=== PATIENT | male | born 1955 | race Caucasian/White ===

== ENCOUNTER 2021-12-28 07:59 | Outpatient (CLI) | payer BC, SELFPAY ==
--- NOTE | 2021-12-28 08:09 | CT_ITS ---
WS: [id number] CT TEMPORAL BONES TECHNIQUE: Noncontrast CT of the temporal bones with coronal and sagittal reformatted images. CLINICAL INFORMATION: MIXED CONDUCTIVE SENSORINEURAL HEARING LOSS, BILATERAL COMPARISON: CT March 032005 DLP: 308.[address] scans at [facility] use at least one of these dose optimization techniques: automated e xposure control; mA and/or kV adjustment per patient size (includes targeted exams where dose is matc hed to clinical indication); or iterative reconstruction. FINDINGS: Mastoid air cells well aerated bilaterally. External auditory canals are patent. Paranasal sinuses are well aerated. Mild mucosal thickening ethmoid air cells. Normal posterior nasopharynx. No rmal parapharyngeal fat RIGHT: Mastoid air cells are well aerated. Normal external auditory canal. Ossicles are normal in appearance . Middle ear is well aerated. Normal tegmen tympani. Semicircular canals and cochlea are normal in ap pearance. Prussak's space is normal. Normal inner ear structures. Normal vestibular aqueduct. Facial nerve recess is normal. LEFT: Mastoid air cells are well aerated. Normal external auditory canal. Ossicles are normal in appearance . Middle ear is well aerated. Normal tegmen tympani. Semicircular canals and cochlea are normal in ap pearance. Prussak's space is normal. Normal inner ear structures. Normal vestibular aqueduct. Facial nerve recess is normal. Visualized intracranial contents and posterior fossa are normal. CT/CT temporal bone wo con* [id number] IMPRESSION: Normal temporal bone CT.
== END 2021-12-28 08:00 | disposition home or self-care (01) ==
PROVIDERS: Family Provider Family Medicine; Visit Provider Specialist
DX: H90.6 Mixed conductive and sensorineural hearing loss, bilateral (principal)
CPT/HCPCS: 70480

== ENCOUNTER 2022-11-28 13:33 | Observation (INO) | payer MEDICARE, SELFPAY ==
[2022-11-28] VITALS (10 sets, daily range): BP systolic 190–210; BP diastolic 78–111; PULSE 61–100; RESP 18–20; TEMP 36.5–37.7; O2SAT 93–99
--- NOTE | 2022-11-28 14:03 | US_ITS ---
WS: [id number] ULTRASOUND ABDOMEN LIMITED CLINICAL INFORMATION: RUQ abd pain COMPARISON: None. FINDINGS: Liver Size: Enlarged Craniocaudal length: 17.4 cm. Echogenicity: Coarse Surface nodularity: None. Mass (size and location): None. Bile ducts Intrahepatic ducts: Normal. Common bile duct diameter: 1.0 cm. Gallbladder Cholelithiasis with mild gallbladder wall thickening and trace pericholecystic fluid. Gallstones: Present Gallbladder sludge: None. Gallbladder wall thickening: Present Pericholecystic fluid: Present Sonographic Das sign: Present Pancreas Normal as visualized. Right kidney: Normal. Hydronephrosis: None. Size: 10.0 cm x 5.6 cm x 4.7 cm. Abdominal aorta and IVC Visualized portions are normal. Ascites: None. US/US gall bladder [id number] IMPRESSION: Technically difficult study due to patient's pain. 1. Hepatomegaly with coarse hepatic echogenicity likely due to fatty infiltrat ion. 2. Shadowing cholelithiasis mild diffuse gallbladder wall thickening with surinder a and trace fluid. Findings suspicious for cholecystitis. 3. Dilated common bile duct measures 10.5 mm. Recommend MRCP for evaluation of choledocholithiasis. 4. No hydronephrosis in RIGHT kidney. Notified Matias Murillo DO at 11/28/2022 2:59 PM.
[2022-11-28] MEDS: sodium chloride 0.9% 1,000 ML 999 ML IV (14:12)
--- NOTE | 2022-11-28 14:19 | W.ED.ABDPA2 ---
Documented by User: Matias Murillo DO 11/29/22 06:08 HPI - Abdominal Pain General: Chief Complaint: Abdominal Pain Stated Complaint: abd pain Time Seen by Provider: 11/28/22 13:42 Source: patient Mode of arrival: ambulatory History of Present Illness: 67-year-old male presents emergency room complaining of abdominal pain. The nurses notes that he hit his left abdomen with a sledgehammer 4 days ago the handle snapped back and caught him however when I seen him he referred to his right upper quadrant to the lower ribs on the right. There is no bruising there. He states that was 4 days ago this morning around 9:00 he began having abdominal discomfort with nausea and vomiting and pain is radiating to his back he denies any dysuria urgency or frequency or hematuria no chest pain no shortness of breath no fever sweats or chills no hematemesis or coffee-ground emesis. He has not previously had episodes like this. No previous abdominal surgeries. MD elicited complaint: abdominal pain Onset (ago): hour(s) Pain Consistency: constant Location: RUQ Severity: moderate Quality: sharp Radiation: R flank and back Exacerbating factors: nothing Relieving factors: nothing Associated Symptoms: Reports bloating, GI cramping, nausea and poor appetite; Denies anorexia, belching, change in bowel habits, change in stool character, chills, coffee ground emesis, constipation, diarrhea, dyspepsia, dysuria, excessive flatus, fever(s), heartburn, hematochezia, hematuria, hematemesis, fecal incontinence, loose stools, melena, syncope and vomiting Review of Systems Const: Denies: fever(s) or chills ENMT: Denies: throat pain, ear or mastoid pain, nasal discharge or nasal congestion Card: Denies: chest pain, palpitations, irregular heart rhythm or syncope Resp: Denies: dyspnea, productive cough or non-productive cough GI: Reports: abdominal pain, nausea, bloating and GI cramping; Denies: vomiting, hematemesis, coffee ground emesis, heartburn, diarrhea, constipation, belching, excessive flatus, fecal incontinence, change in bowel habits, change in stool character, hematochezia or melena : Denies: dysuria, urinary frequency, urinary urgency or hematuria Musc: Reports: back pain; Denies: neck pain Skin/Breast: Denies: rash or pruritus Physical Exam Const: GENERAL APPEARANCE: cooperative and comfortable ORIENTATION/CONSCIOUSNESS: Yes awake, Yes oriented to person, Yes oriented to place and Yes oriented to time HENMT: COMMON NORMALS: normocephalic, atraumatic and hearing grossly normal bilaterally HEAD & SCALP: normocephalic and atraumatic Resp: COMMON NORMALS: normal respiratory effort, No retractions, No use of accessory muscles and clear to auscultation bilaterally AUSCULTATION: clear to auscultation bilaterally Cardio: COMMON NORMALS: regular rate, regular rhythm and No murmurs present (Cardio) RATE: regular rate RHYTHM: regular rhythm GI: COMMON NORMALS: No hepatosplenomegaly present AUSCULTATION: Yes normoactive bowel sounds PALPATION: Yes Tenderness to palpation present (GI) Details: RUQ, No Guarding due to palpation present (GI) and Yes No hepatosplenomegaly present Extremity: COMMON NORMALS: normal to inspection, capillary refill normal, no clubbing, cyanosis or edema, no calf tenderness and no pedal edema Neuro: SENSORIUM/ORIENTATION: Yes oriented to person, Yes oriented to place and Yes oriented to time Skin: COMMON NORMALS: no rashes or lesions noted GENERAL SKIN EXAM: no rashes or lesions noted Course Vital Signs: Vital signs: Vital Signs Temperature 99.8 F H 11/28/22 21:17 Pulse Rate 78 11/29/22 03:00 Respiratory Rate 20 H 11/29/22 03:00 Blood Pressure 164/78 11/29/22 03:00 Pulse Oximetry 96 11/29/22 03:00 Oxygen Delivery Me thod Room Air 11/29/22 03:00 MDM - Abdominal Pain Medical Decision Making Care signed out to Dr. Bacon at change of shift. See final notes for diagnosis and disposition. Patient presents with cholecystitis he has no signs of common bile duct dilatation on his MRCP I did speak to surgeon on-call Dr. Watt will start on IV antibiotics and admit at this time. Medical Records I reviewed the patient's medical records. Lab Data I reviewed the patient's lab results. 11/28/22 14:18 11/28/22 14:18 Labs/Radiology: Radiology Impressions Gallbladder Ultrasound 11/28/22 14:03 IMPRESSION: Technically difficult study due to patient's pain. 1. Hepatomegaly with coarse hepatic echogenicity likely due to fatty infiltration. 2. Shadowing cholelithiasis mild diffuse gallbladder wall thickening with edema and trace fluid. Findings suspicious for cholecystitis. 3. Dilated common bile duct measures 10.5 mm. Recommend MRCP for evaluation of choledocholithiasis. 4. No hydronephrosis in RIGHT kidney. Notified Matias Murillo DO at 11/28/2022 2:59 PM. Cholangiopancreatography MRI 11/28/22 15:19 IMPRESSION: 1. Cholelithiasis with findings consistent with cholecystitis. 2. No common bile duct dilation or choledocholithiasis. 3. Hepatic steatosis. COMMENTS: Consistent with the [employer]'s Incidental Findings Committee white paper (J Am Smita Radiol 2018): Any incidental renal lesion less than 1 cm or classified as too small to characterize, or any incidental cystic renal lesion characterized as simple-appearing, is likely benign. No follow-up imaging is recommended for these lesions per consensus recommendations based on imaging criteria. Laboratory Results WBC 12.6 10^3/uL (4.0-10.0) H 11/28/22 14:18 RBC 6.03 10^6/uL (4.1-5.3) H 11/28/22 14:18 Hgb 17.3 g/dL (11.7-16.6) H 11/28/22 14:18 Hct 50.1 % (42.0-52.0) 11/28/22 14:18 MCV 83.1 fl (80-94) 11/28/22 14:18 MCH 28.7 pg (28.0-34.0) 11/28/22 14:18 MCHC 34.5 g/dL (30.0-36.0) 11/28/22 14:18 RDW 12.7 % (12.1-15.1) 11/28/22 14:18 Plt Count 287 10^3/cmm (130-400) 11/28/22 14:18 MPV 9.6 fL (7.4-10.4) 11/28/22 14:18 Neut % (Auto) 82.6 % 11/28/22 14:18 Lymph % (Auto) 12.0 % 11/28/22 14:18 Gilchrist % (Auto) 3.5 % 11/28/22 14:18 Eos % (Auto) 1.0 % 11/28/22 14:18 Baso % (Auto) 0.4 % 11/28/22 14:18 Neut # (Auto) 10.37 10^3/uL (1.8-7.7) H 11/28/22 14:18 Lymph # (Auto) 1.5 10^3/uL (0.8-4.8) 11/28/22 14:18 Gilchrist # (Auto) 0.4 10^3/uL (0.2-0.9) 11/28/22 14:18 Eos # (Auto) 0.1 10^3/uL (0.0-0.8) 11/28/22 14:18 Baso # (Auto) 0.1 10^3/uL (0.0-0.1) 11/28/22 14:18 Nucleated RBC % (auto) 0 % 11/28/22 14:18 Nucleated RBCs # 0.0 /100WBC 11/28/22 14:18 Sodium 139 mmol/L (136-145) 11/28/22 14:18 Potassium 3.9 mmol/L (3.5-5.1) 11/28/22 14:18 Chloride 102 mmol/L (98-107) 11/28/22 14:18 Carbon Dioxide 24 mmol/L (22-29) 11/28/22 14:18 Anion Gap 16.9 (5-19) 11/28/22 14:18 BUN 21 mg/dL (8-23) 11/28/22 14:18 Creatinine 1.0 mg/dL (0.7-1.2) 11/28/22 14:18 GFR Calculation 74.1 mL/min (90-130) L 11/28/22 14:18 Glucose 115 mg/dL (65-115) 11/28/22 14:18 Calculated Osmolality 292 mOsm/kg (285-295) 11/28/22 14:18 Calcium 9.6 mg/dL (8.5-10.5) 11/28/22 14:18 Total Bilirubin 1.0 mg/dL (0.15-1.2) 11/28/22 14:18 AST 20 U/L (0-40) 11/28/22 14:18 ALT 22 U/L (0-41) 11/28/22 14:18 Alkaline Phosphatase 104 U/L (40-130) 11/28/22 14:18 Total Protein 7.5 g/dL (6.6-8.7) 11/28/22 14:18 Albumin 4.3 g/dL (3.5-5.2) 11/28/22 14:18 Globulin 3.2 g/dL (1.3-4.6) 11/28/22 14:18 Lipase 43 U/L (13-60) 11/28/22 14:08 Urine Color Yellow (Yellow) 11/28/22 16:40 Urine Appearance Clear (CLEAR) 11/28/22 16:40 Urine pH 6 (5-7) 11/28/22 16:40 Ur Specific [place] 1.020 (1.005-1.030) 11/28/22 16:40 Urine Protein Neg (Negative) 11/28/22 16:40 Urine Glucose (UA) Norm (Normal) 11/28/22 16:40 Urine Ketones 1+ (Negative) H 11/28/22 16:40 Urine Blood Neg (Negative) 11/28/22 16:40 Urine Nitrate Negative (Negative) 11/28/22 16:40 Urine Bilirubin Neg (Negative) 11/28/22 16:40 Urine Urobilinogen Neg mg/dL (Negative) 11/28/22 16:40 Ur Leukocyte Esterase Negative (Negative) 11/28/22 16:40 Discharge Plan Discharge Patient Disposition: Admitted As Inpatient Admit Provider: Lyndon Watt Clinical Impression: Acute cholecystitis Condition: Stable Coding Level of Care Code ED [place] for Chg Fwd Documented by User: Steven Bacon MD 11/28/22 19:03 HPI - Abdominal Pain General: Chief Complaint: Abdominal Pain Stated Complaint: abd pain Time Seen by Provider: 11/28/22 13:42 Course Vital Signs: Vital signs: Vital Signs Temperature 99.8 F H 11/28/22 21:17 Pulse Rate 78 11/29/22 03:00 Respiratory Rate 20 H 11/29/22 03:00 Blood Pressure 164/78 11/29/22 03:00 Pulse Oximetry 96 11/29/22 03:00 Oxygen Delivery Me thod Room Air 11/29/22 03:00 MDM - Abdominal Pain Medical Decision Making Patient presents with cholecystitis he has no signs of common bile duct dilatation on his MRCP I did speak to surgeon on-call Dr. Watt will start on IV antibiotics and admit at this time. Lab Data 11/28/22 14:18 11/28/22 14:18 Labs/Radiology: Radiology Impressions Gallbladder Ultrasound 11/28/22 14:03 IMPRESSION: Technically difficult study due to patient's pain. 1. Hepatomegaly with coarse hepatic echogenicity likely due to fatty infiltration. 2. Shadowing cholelithiasis mild diffuse gallbladder wall thickening with edema and trace fluid. Findings suspicious for cholecystitis. 3. Dilated common bile duct measures 10.5 mm. Recommend MRCP for evaluation of choledocholithiasis. 4. No hydronephrosis in RIGHT kidney. Notified Matias Murillo DO at 11/28/2022 2:59 PM. Cholangiopancreatography MRI 11/28/22 15:19 IMPRESSION: 1. Cholelithiasis with findings consistent with cholecystitis. 2. No common bile duct dilation or choledocholithiasis. 3. Hepatic steatosis. COMMENTS: Consistent with the [employer]'s Incidental Findings Committee white paper (J Am Smita Radiol 2018): Any incidental renal lesion less than 1 cm or classified as too small to characterize, or any incidental cystic renal lesion characterized as simple-appearing, is likely benign. No follow-up imaging is recommended for these lesions per consensus recommendations based on imaging criteria. Laboratory Results WBC 12.6 10^3/uL (4.0-10.0) H 11/28/22 14:18 RBC 6.03 10^6/uL (4.1-5.3) H 11/28/22 14:18 Hgb 17.3 g/dL (11.7-16.6) H 11/28/22 14:18 Hct 50.1 % (42.0-52.0) 11/28/22 14:18 MCV 83.1 fl (80-94) 11/28/22 14:18 MCH 28.7 pg (28.0-34.0) 11/28/22 14:18 MCHC 34.5 g/dL (30.0-36.0) 11/28/22 14:18 RDW 12.7 % (12.1-15.1) 11/28/22 14:18 Plt Count 287 10^3/cmm (130-400) 11/28/22 14:18 MPV 9.6 fL (7.4-10.4) 11/28/22 14:18 Neut % (Auto) 82.6 % 11/28/22 14:18 Lymph % (Auto) 12.0 % 11/28/22 14:18 Gilchrist % (Auto) 3.5 % 11/28/22 14:18 Eos % (Auto) 1.0 % 11/28/22 14:18 Baso % (Auto) 0.4 % 11/28/22 14:18 Neut # (Auto) 10.37 10^3/uL (1.8-7.7) H 11/28/22 14:18 Lymph # (Auto) 1.5 10^3/uL (0.8-4.8) 11/28/22 14:18 Gilchrist # (Auto) 0.4 10^3/uL (0.2-0.9) 11/28/22 14:18 Eos # (Auto) 0.1 10^3/uL (0.0-0.8) 11/28/22 14:18 Baso # (Auto) 0.1 10^3/uL (0.0-0.1) 11/28/22 14:18 Nucleated RBC % (auto) 0 % 11/28/22 14:18 Nucleated RBCs # 0.0 /100WBC 11/28/22 14:18 Sodium 139 mmol/L (136-145) 11/28/22 14:18 Potassium 3.9 mmol/L (3.5-5.1) 11/28/22 14:18 Chloride 102 mmol/L (98-107) 11/28/22 14:18 Carbon Dioxide 24 mmol/L (22-29) 11/28/22 14:18 Anion Gap 16.9 (5-19) 11/28/22 14:18 BUN 21 mg/dL (8-23) 11/28/22 14:18 Creatinine 1.0 mg/dL (0.7-1.2) 11/28/22 14:18 GFR Calculation 74.1 mL/min (90-130) L 11/28/22 14:18 Glucose 115 mg/dL (65-115) 11/28/22 14:18 Calculated Osmolality 292 mOsm/kg (285-295) 11/28/22 14:18 Calcium 9.6 mg/dL (8.5-10.5) 11/28/22 14:18 Total Bilirubin 1.0 mg/dL (0.15-1.2) 11/28/22 14:18 AST 20 U/L (0-40) 11/28/22 14:18 ALT 22 U/L (0-41) 11/28/22 14:18 Alkaline Phosphatase 104 U/L (40-130) 11/28/22 14:18 Total Protein 7.5 g/dL (6.6-8.7) 11/28/22 14:18 Albumin 4.3 g/dL (3.5-5.2) 11/28/22 14:18 Globulin 3.2 g/dL (1.3-4.6) 11/28/22 14:18 Lipase 43 U/L (13-60) 11/28/22 14:08 Urine Color Yellow (Yellow) 11/28/22 16:40 Urine Appearance Clear (CLEAR) 11/28/22 16:40 Urine pH 6 (5-7) 11/28/22 16:40 Ur Specific [place] 1.020 (1.005-1.030) 11/28/22 16:40 Urine Protein Neg (Negative) 11/28/22 16:40 Urine Glucose (UA) Norm (Normal) 11/28/22 16:40 Urine Ketones 1+ (Negative) H 11/28/22 16:40 Urine Blood Neg (Negative) 11/28/22 16:40 Urine Nitrate Negative (Negative) 11/28/22 16:40 Urine Bilirubin Neg (Negative) 11/28/22 16:40 Urine Urobilinogen Neg mg/dL (Negative) 11/28/22 16:40 Ur Leukocyte Esterase Negative (Negative) 11/28/22 16:40 Discharge Plan Discharge Patient Disposition: Admitted As Inpatient Admit Provider: Lyndon Watt Clinical Impression: Acute cholecystitis Condition: Stable Coding Level of Care Code ED [place] for Masoud Hernandez
[2022-11-28] MEDS: morphine 4 mg/mL SDV 1 mL IVP ×3 (14:36→20:51)
[2022-11-28 14:56] LABS: Basophils # 0.1 10^3/uL (0.0-0.1); Basophils % 0.4 %; Eosinophils # 0.1 10^3/uL (0.0-0.8); Hematocrit 50.1 % (42.0-52.0); Hemoglobin 17.3 g/dL (11.7-16.6); Lymphocytes # 1.5 10^3/uL (0.8-4.8); Mean Corpuscular HGB Conc 34.5 g/dL (30.0-36.0); Mean Corpuscular Hemoglobin 28.7 pg (28.0-34.0); Mean Corpuscular Volume 83.1 fl (80-94); Mean Platelet Volume 9.6 fL (7.4-10.4); Monocytes # 0.4 10^3/uL (0.2-0.9); Monocytes % 3.5 %; Neutrophils # 10.37 10^3/uL (1.8-7.7); Neutrophils % 82.6 %; Nucleated Red Blood Cells % 0 %; Platelet Count 287 10^3/cmm (130-400); Red Blood Count 6.03 10^6/uL (4.1-5.3); Red Cell Distribution Width 12.7 % (12.1-15.1); White Blood Count 12.6 10^3/uL (4.0-10.0)
[2022-11-28 15:12] LABS: Alanine Aminotransferase 22 U/L (0-41); Albumin Level 4.3 g/dL (3.5-5.2); Alkaline Phosphatase 104 U/L (40-130); Anion Gap 16.9 (5-19); Aspartate Amino Transferase 20 U/L (0-40); Blood Urea Nitrogen 21 mg/dL (8-23); Calcium 9.6 mg/dL (8.5-10.5); Carbon Dioxide 24 mmol/L (22-29); Chloride 102 mmol/L (98-107); Globulin 3.2 g/dL (1.3-4.6); Glomerular Filtration Rate 74.1 mL/min (90-130); Glucose 115 mg/dL (65-115); Osmolality Calculated 292 mOsm/kg (285-295); Potassium 3.9 mmol/L (3.5-5.1); Sodium 139 mmol/L (136-145); Total Protein 7.5 g/dL (6.6-8.7)
--- NOTE | 2022-11-28 15:19 | MRR_ITS ---
PROCEDURE INFORMATION: Exam: MR Abdomen Without Contrast Exam date and time: 11/28/2022 5:43 PM Age: 67 years old Clinical indication: Abdominal pain; Additional info: Right upper quadrant abdominal pain dilated common bile duct TECHNIQUE: Imaging protocol: Magnetic resonance imaging of the abdomen without contrast. COMPARISON: US gall bladder [id number] 11/28/2022 2:19 PM FINDINGS: Liver: Hepatic steatosis. No mass. Gallbladder and bile ducts: Cholelithiasis with gallbladder wall edema and thickening. Common bile duct measures 5 mm in diameter. No filling defect within the common bile duct. Pancreas: Unremarkable. No ductal dilation. Spleen: Unremarkable. No splenomegaly. Adrenal glands: Unremarkable. No mass. Kidneys and ureters: Subcentimeter cyst noted in the right kidney. No solid mass. No hydronephrosis. Stomach and bowel: Visualized stomach and intestines are unremarkable. Intraperitoneal space: No free fluid. Vasculature: No abdominal aortic aneurysm. Bones/joints: Unremarkable. Soft tissues: Unremarkable. MR/MR MRCP [id number] IMPRESSION: 1. Cholelithiasis with findings consistent with cholecystitis. 2. No common bile duct dilation or choledocholithiasis. 3. Hepatic steatosis. COMMENTS: Consistent with the [employer]'s Incidental Findings Committee white paper (J Am Smita Radiol 2018): Any incidental renal lesion less than 1 cm or classified as too small to characterize, or any incidental cystic renal lesion characterized as simple-appearing, is likely benign. No follow-up imaging is recommended for these lesions per consensus recommendations based on imaging criteria.
[2022-11-28 17:15] LABS: Add Urine Microscopic? NO; Charge for UA Resulting for Rev
[2022-11-28 17:51] LABS: Bilirubin Urine Neg (Negative); Blood Urine Neg (Negative); Glucose Urine UA Norm (Normal); Ketones Urine 1+ (Negative); Leukocyte Esterase Urine Negative (Negative); Nitrate Urine Negative (Negative); Protein Urine Neg (Negative); Urine Appearance Clear (CLEAR); Urine Color Yellow (Yellow); Urobilinogen Urine Neg (Negative); pH Urine 6 (5-7)
[2022-11-28 18:41] LABS: Lipase 43 U/L (13-60)
[2022-11-28] MEDS: piperacillin-tazobactam 3.375 GM in sodium chloride 0.9% (plus) 50 ML IV ×2 (19:35→22:12)
[2022-11-28] MEDS: sodium chloride 0.9% 1,000 ML 100 ML IV (20:51)
[2022-11-28] MEDS: ondansetron 2 mg/ML SDV 2 mL 4 MG IVP (20:51)
[2022-11-29] VITALS (19 sets, daily range): BP systolic 120–164; BP diastolic 58–79; PULSE 62–100; RESP 15–22; TEMP 36.9–38.1; O2SAT 91–96
[2022-11-29] MEDS: morphine 4 mg/mL SDV 1 mL IVP ×3 (01:09→12:55)
[2022-11-29] MEDS: sodium chloride 0.9% 1,000 ML 100 ML IV ×3 (02:34→23:56)
[2022-11-29] MEDS: piperacillin-tazobactam 3.375 GM in sodium chloride 0.9% (plus) 50 ML IV ×3 (06:26→20:02)
[2022-11-29] MEDS: ondansetron 4 MG Tablet PO (09:28)
--- NOTE | 2022-11-29 12:47 | P.ANESASSM_ITS ---
Pre-Anesthetic Assessment Height/Weight: Weight 86.183 kg Temp Pulse Resp BP Pulse Ox O2 Del Method 99.1 F 71 15 160/74 94 Room Air 11/29/22 11:00 11/29/22 11:00 11/29/22 11:00 11/29/22 11:00 11/29/22 11:00 11/29/22 11:00 Operation Date: 11/29/22 13:35 Proposed Procedures p Laparoscopic Cholecystectomy(Not Applicable) - Lyndon Watt DO Familial anesthetic complications: None Was Beta Niki taken within 24 hours: N/A Was Clonidine taken within 24 hours: N/A Last intake: > 8hrs Social No alcohol and No tobacco Exam alert, oriented x 3, clear to auscultation bilaterally and regular rate & rhythm Airway Mallampati: Class III Dentition: false Neuropsych cochlear implant Anesthetic Plan ASA status: 2 Anesthesia: General Risk of > 500 ml blood loss (7ml/kg in children): No Medications/Allergies Home Medications Medication Instructions Recorded Confirmed Last Taken Type No Known Home Medications 11/29/22 11/29/22 Unknown History Allergies Allergy/AdvReac Type Severity Reaction Status Date / Time No Known Allergies Allergy Verified 11/28/22 13:36 Current Medications Generic Name Dose Route Start Last Admin Trade Name Freq PRN Reason Stop Dose Admin Piperacillin Sod/Tazobactam 50 mls @ 12.5 mls/hr 11/28/22 19:30 11/29/22 10:53 Sod 3.375 gm/ Sodium Chloride IV Infused Q8H FORTUNATO Infusion Protocol Sodium Chloride 1,000 mls @ 100 mls/hr 11/28/22 19:38 11/29/22 12:21 Sodium Chloride 0.9% IV 100 mls/hr .Q10H FORTUNATO Administration Morphine Sulfate 4 mg 11/28/22 19:38 11/29/22 07:36 Morphine 4 Mg/Ml Sdv 1 Ml IVP 4 mg Q4H PRN Administration SEVERE PAIN Ondansetron HCl 4 mg 11/28/22 19:38 11/29/22 09:28 Ondansetron 4 Mg Tablet PO 4 mg Q8H PRN Administration NAUSEA AND VOMITING Data Anesthesia 11/28/22 14:18 11/28/22 14:18 Short CBC 11/28/22 Range/Units 14:18 WBC 12.6 H (4.0-10.0) 10^3/uL Hgb 17.3 H (11.7-16.6) g/dL Hct 50.1 (42.0-52.0) % MCV 83.1 (80-94) fl Plt Count 287 (130-400) 10^3/cmm Neut % (Auto) 82.6 % Neut # (Auto) 10.37 H (1.8-7.7) 10^3/uL BMP 11/28/22 14:18 Sodium 139 Potassium 3.9 Chloride 102 Carbon Dioxide 24 BUN 21 Creatinine 1.0 Glucose 115 Calcium 9.6 Liver Function 11/28/22 Range/Units 14:18 Total Bilirubin 1.0 (0.15-1.2) mg/dL AST 20 (0-40) U/L ALT 22 (0-41) U/L Alkaline Phosphatase 104 (40-130) U/L Albumin 4.3 (3.5-5.2) g/dL Urine 11/28/22 Range/Units 16:40 Urine Color Yellow (Yellow) Urine Appearance Clear (CLEAR) Urine pH 6 (5-7) Ur Specific [place] 1.020 (1.005-1.030) Urine Protein Neg (Negative) Urine Glucose (UA) Norm (Normal) Urine Ketones 1+ H (Negative) Urine Nitrate Negative (Negative) Urine Bilirubin Neg (Negative) Ur Leukocyte Esterase Negative (Negative) Microbiology 11/28/22 19:18 Blood Culture - Preliminary Blood SPECIMEN COLLECTED 11/28/22 19:18 Blood Culture - Preliminary Blood SPECIMEN COLLECTED Cardiac Studies: No Data to Display
[2022-11-29] MEDS: sodium chloride 0.9% 1,000 ML 30 ML IV (14:41)
--- NOTE | 2022-11-29 14:54 | P.HP_ITS ---
Providers/Chief Complaint Admitting Physician: Lyndon Watt DO Primary Care Provider: Lyndon Leon Chief Complaint: abd pain History of Present Illness Edil Gr is a 67 year old male who presented to the hospital with a 1 day history of right-sided abdominal pain radiating to his right flank. Eating makes pain worse. Nothing makes pain better. He does report nausea and emesis but denies any hematemesis. Denies any diarrhea, constipation, hematochezia and/or melena. Imaging shows acute calculus cholecystitis. Review of Systems General: Reports: 10 or more systems reviewed and unremarkable except in HPI and below Medications/Allergies Home Medications Medication Instructions Recorded Confirmed Last Taken Type No Known Home Medications 11/29/22 11/29/22 Unknown History Allergies Allergy/AdvReac Type Severity Reaction Status Date / Time No Known Allergies Allergy Verified 11/28/22 13:36 Vitals/I&O/Wt Last Vital Signs Temp 99.1 F 11/29/22 11:00 Pulse 71 11/29/22 11:00 Resp 18 11/29/22 12:55 BP 160/74 11/29/22 11:00 Pulse Ox 94 11/29/22 11:00 O2 Del Method Room Air 11/29/22 11:00 11/28/22 11/29/22 11/29/22 22:59 06:59 14:59 Intake Total 1050 / 1050 621.667 / 7130.525 6822.333 / 1028.333 Output Total 400 / 400 Balance 1050 / 1050 221.667 / 9221.029 9913.333 / 1028.333 Weight last 48 hrs Weight 190 lb Physical Exam Narrative: General : Patient is well developed , no acute distress, oriented x3 Head : Normal cephalic, a-traumatic. Ears : Pinnae and external canal are normal. He is hard of hearing. Eyes : PERRLA, Sclera and injection are normal. No conjunctival discharge. Nose : Mucous membranes are without erythema. Throat : buccal mucosa is normal, gums are without significant recession or hypertrophy. Lungs : Equal chest rise bilaterally, no use of accessory muscles, trachea is midline. Cor : Rate and rhythm are normal. Abdomen : Soft, ND, tender to palpation in the right upper quadrant, positive Das's no g/r/m Extremities : No edema, no cyanosis or clubbing, dorsalis pedis pulses are present bilaterally, non-tender to palpation of calves. Upper extremities are normal bilaterally. Back : non-tender to palpation, no CVA tenderness. Neuro : CN II - XII intact, Upper and lower extremities have equal and full str ength Data 11/28/22 14:18 11/28/22 14:18 Micro: Microbiology 11/28/22 19:18 Blood Culture - Preliminary Blood SPECIMEN COLLECTED 11/28/22 19:18 Blood Culture - Preliminary Blood SPECIMEN COLLECTED A&P Assessment and plan (1) Acute calculous cholecystitis: Plan Laparoscopic cholecystectomy The risks and benefits of the procedure, including but not limited to, bleeding, infection, scar, numbness, pain, damage to surrounding structures, damage to common bile duct requiring additional surgery, conversion to an open procedure, were explained to the patient. He is understanding of the risks and wishes to proceed. Attestations Medical Necessity Statement*: Patient requires at least 1 night in the hospital for recovery after laparoscopic cholecystectomy Coding Level of Care Code 22083 Diagnoses Acute calculous cholecystitis K80.00
[2022-11-29] MEDS: lidocaine-epi 2% 20 mL INJ INJECTION (15:25)
--- NOTE | 2022-11-29 16:02 | P.OP_ITS ---
Operative Report Date of procedure: November 29, 2022 Pre-op diagnosis: Acute calculous cholecystitis Post-op diagnosis: same Procedure done: Laparoscopic cholecystectomy Implants: Surgicel Specimens removed/disposition: Gallbladder Surgeon: Dr. Lyndon Watt DO Anesthesia: General Estimated blood loss (mL): 20 Complications: None apparent Brief History: This is a very pleasant 67-year-old gentleman who came into the hospital with acute calculus cholecystitis. Laparoscopic cholecystectomy was indicated. The risk and benefits were explained and documented. Procedure: Patient was wheeled into the operative room and placed on the OR table in a supine position. Abdomen was inspected prepped and draped in usual sterile fashion. Time-out was performed and all present were in agreement. A 15 blade scalp was used to make a stab incision in the left upper quadrant and intra- abdominal insufflation was achieved using a Veress needle. After localizing the tissue incisions were made and a 5 millimeter trocar was placed into the umbilicus as well as 2 in the right upper quadrant. A 12 millimeter trocar was placed in the epigastrium. Gallbladder was covered with dense inflamed omentum. There was a thick inflammatory peel over the gallbladder. Gallbladder was grasped and elevated. The triangle of Calot was carefully dissected using blunt dissection and electrocautery until the triangle of Calot clearly identified. The cystic duct was clipped proximally and double clipped distally. The duct was then ligated proximally. The cystic artery was doubly clipped and ligated. The gallbladder was then removed from the liver bed using electrocautery. The gallbladder was removed from the abdomen using an Endo-Catch bag through the epigastric incision. The liver bed was inspected and no bleeding was seen. The abdomen was irrigated and suctioned. The epigastric port had to be enlarged significantly due to the size of the gallbladder and stones. The epigastric port was closed at the fascia with a Dakota-Sree and 0 Vicryl in a [id number] fashion. All ports removed. Skin was washed and dried. Incisions were closed with 3-0 and 4-O Vicryl in a subcuticular interrupted fashion. Skin glue was applied. Patient tolerated the procedure well.
[2022-11-30 00:05] VITALS: BP 129/69; PULSE 64; RESP 18; O2SAT 94
[2022-11-30] MEDS: HYDROcodone-acetaminophen 7.5-325 mg Tablet 1 TAB PO ×2 (00:31→07:43)
[2022-11-30 03:11] VITALS: BP 117/67; PULSE 60; RESP 16; O2SAT 94
[2022-11-30] MEDS: piperacillin-tazobactam 3.375 GM in sodium chloride 0.9% (plus) 50 ML IV (03:56)
--- NOTE | 2022-11-30 05:57 | PC.NURSE ---
Patient's oxygen saturation 95 percent on 2 liters nasal cannula. Patient titrated off of nasal cannula to room air. Oxygen saturation currently 91 percent on room air. Will monitor.
[2022-11-30 07:33] VITALS: BP 125/81; PULSE 70; RESP 18; TEMP 36.8; O2SAT 93
--- NOTE | 2022-11-30 08:36 | PM.DCS ---
Discharge Providers Date of Admission: 11/28/22 18:59 Date of Discharge: November 30, 2022 Attending Provider at Admission: Lyndon Watt DO Attending Provider at Discharge: Lyndon Watt DO Primary Care Provider: Lyndon Leon Diagnoses at Discharge Discharge Diagnosis (1) Acute calculous cholecystitis: Status: Acute Reason for Visit Reason for Visit: abd pain Hospital Course Hospital Course This very pleasant 67-year-old gentleman who presented to the hospital with acute calculus cholecystitis. He underwent laparoscopic cholecystectomy and was discharged home in good condition the next day. Physical Exam Narrative: General : Patient is well developed , no acute distress, oriented x3 Head : Normal cephalic, a-traumatic. Ears : Pinnae and external canal are normal. Hearing is normal. Eyes : PERRLA, Sclera and injection are normal. No conjunctival discharge. Nose : Mucous membranes are without erythema. Throat : buccal mucosa is normal, gums are without significant recession or hypertrophy. Lungs : Equal chest rise bilaterally, no use of accessory muscles, trachea is midline. Cor : Rate and rhythm are normal. Abdomen : Soft, ND, appropriately tender, no g/r/m Extremities : No edema, no cyanosis or clubbing, dorsalis pedis pulses are present bilaterally, non-tender to palpation of calves. Upper extremities are normal bilaterally. Back : non-tender to palpation, no CVA tenderness. Neuro : CN II - XII intact, Upper and lower extremities have equal and full strength Discharge Data Studies Completed and Pending Completed Studies During Hospitalization Category Date Time Status MR MRCP 28921 Stat MRI 11/28/22 15:19 Completed US gall bladder 12932 Stat Ultrasound 11/28/22 14:03 Completed Pending at discharge Category Date Time Status Blood Culture Stat Lab 11/28/22 19:18 Results Pathology: Surgical [PTH] Routine Pth 11/29/22 16:03 Ordered Radiology Impressions Gallbladder Ultrasound 11/28/22 14:03 IMPRESSION: Technically difficult study due to patient's pain. 1. Hepatomegaly with coarse hepatic echogenicity likely due to fatty infiltration. 2. Shadowing cholelithiasis mild diffuse gallbladder wall thickening with edema and trace fluid. Findings suspicious for cholecystitis. 3. Dilated common bile duct measures 10.5 mm. Recommend MRCP for evaluation of choledocholithiasis. 4. No hydronephrosis in RIGHT kidney. Notified Matias Murillo DO at 11/28/2022 2:59 PM. Cholangiopancreatography MRI 11/28/22 15:19 IMPRESSION: 1. Cholelithiasis with findings consistent with cholecystitis. 2. No common bile duct dilation or choledocholithiasis. 3. Hepatic steatosis. COMMENTS: Consistent with the [employer]'s Incidental Findings Committee white paper (J Am Smita Radiol 2018): Any incidental renal lesion less than 1 cm or classified as too small to characterize, or any incidental cystic renal lesion characterized as simple-appearing, is likely benign. No follow-up imaging is recommended for these lesions per consensus recommendations based on imaging criteria. Laboratory Results WBC 12.6 10^3/uL (4.0-10.0) H 11/28/22 14:18 RBC 6.03 10^6/uL (4.1-5.3) H 11/28/22 14:18 Hgb 17.3 g/dL (11.7-16.6) H 11/28/22 14:18 Hct 50.1 % (42.0-52.0) 11/28/22 14:18 MCV 83.1 fl (80-94) 11/28/22 14:18 MCH 28.7 pg (28.0-34.0) 11/28/22 14:18 MCHC 34.5 g/dL (30.0-36.0) 11/28/22 14:18 RDW 12.7 % (12.1-15.1) 11/28/22 14:18 Plt Count 287 10^3/cmm (130-400) 11/28/22 14:18 MPV 9.6 fL (7.4-10.4) 11/28/22 14:18 Neut % (Auto) 82.6 % 11/28/22 14:18 Lymph % (Auto) 12.0 % 11/28/22 14:18 [place] % (Auto) 3.5 % 11/28/22 14:18 Eos % (Auto) 1.0 % 11/28/22 14:18 Baso % (Auto) 0.4 % 11/28/22 14:18 Neut # (Auto) 10.37 10^3/uL (1.8-7.7) H 11/28/22 14:18 Lymph # (Auto) 1.5 10^3/uL (0.8-4.8) 11/28/22 14:18 [place] # (Auto) 0.4 10^3/uL (0.2-0.9) 11/28/22 14:18 Eos # (Auto) 0.1 10^3/uL (0.0-0.8) 11/28/22 14:18 Baso # (Auto) 0.1 10^3/uL (0.0-0.1) 11/28/22 14:18 Nucleated RBC % (auto) 0 % 11/28/22 14:18 Nucleated RBCs # 0.0 /100WBC 11/28/22 14:18 Sodium 139 mmol/L (136-145) 11/28/22 14:18 Potassium 3.9 mmol/L (3.5-5.1) 11/28/22 14:18 Chloride 102 mmol/L (98-107) 11/28/22 14:18 Carbon Dioxide 24 mmol/L (22-29) 11/28/22 14:18 Anion Gap 16.9 (5-19) 11/28/22 14:18 BUN 21 mg/dL (8-23) 11/28/22 14:18 Creatinine 1.0 mg/dL (0.7-1.2) 11/28/22 14:18 GFR Calculation 74.1 mL/min (90-130) L 11/28/22 14:18 Glucose 115 mg/dL (65-115) 11/28/22 14:18 Calculated Osmolality 292 mOsm/kg (285-295) 11/28/22 14:18 Calcium 9.6 mg/dL (8.5-10.5) 11/28/22 14:18 Total Bilirubin 1.0 mg/dL (0.15-1.2) 11/28/22 14:18 AST 20 U/L (0-40) 11/28/22 14:18 ALT 22 U/L (0-41) 11/28/22 14:18 Alkaline Phosphatase 104 U/L (40-130) 11/28/22 14:18 Total Protein 7.5 g/dL (6.6-8.7) 11/28/22 14:18 Albumin 4.3 g/dL (3.5-5.2) 11/28/22 14:18 Globulin 3.2 g/dL (1.3-4.6) 11/28/22 14:18 Lipase 43 U/L (13-60) 11/28/22 14:08 Urine Color Yellow (Yellow) 11/28/22 16:40 Urine Appearance Clear (CLEAR) 11/28/22 16:40 Urine pH 6 (5-7) 11/28/22 16:40 Ur Specific Porter 1.020 (1.005-1.030) 11/28/22 16:40 Urine Protein Neg (Negative) 11/28/22 16:40 Urine Glucose (UA) Norm (Normal) 11/28/22 16:40 Urine Ketones 1+ (Negative) H 11/28/22 16:40 Urine Blood Neg (Negative) 11/28/22 16:40 Urine Nitrate Negative (Negative) 11/28/22 16:40 Urine Bilirubin Neg (Negative) 11/28/22 16:40 Urine Urobilinogen Neg mg/dL (Negative) 11/28/22 16:40 Ur Leukocyte Esterase Negative (Negative) 11/28/22 16:40 Procedures Performed Laparoscopic cholecystectomy Vitals Last Vital Signs Temp 98.3 F 11/30/22 07:33 Pulse 70 11/30/22 07:33 Resp 18 11/30/22 07:33 BP 125/81 11/30/22 07:33 Pulse Ox 93 11/30/22 07:33 O2 Del Method Nasal Cannula 11/30/22 07:33 O2 Flow Rate 3 11/30/22 03:11 Discharge Plan Discharge Patient Disposition: Home Condition: Stable Prescriptions: New hydrocodone-acetaminophen 10-325 mg tablet 1 tab PO Q6H PRN (Reason: pain) Qty: 20 0RF DOK 100 mg capsule 100 mg PO BID Qty: 14 0RF amoxicillin-pot clavulanate 875-125 mg tablet 1 tab PO BID Qty: 20 0RF Discharge Orders: Discharge Order (Routine); Ordered 11/30/22 Ordered By: Lyndon Watt Referrals: Lyndon Leon [Primary Care Provider] - Lyndon Watt DO [Physician] - 2 weeks Discharge Diet: Advance as tolerated Discharge Activity: Resume usual activity Patient Instructions: Opioid Safety, Post Anesthesia Care Activity Restrictions/Additional Instructions: Do not soak incisions underwater for 2 weeks. Shower daily Discharge Attestations Time Spent in Discharge Care*: less than 30 min Quality Metrics Clinical Quality Measures [ No reported AMI, CVA or VTE this stay] Coding Level of Care Code Acute Code for Chg Fwd Diagnoses Acute calculous cholecystitis K80.00
--- NOTE | 2022-11-30 10:12 | PC.NURSE ---
Discharge instructions and post op care discussed with pt, pt verbalized understanding. IV removed, catheter tip intact, pt tolerated well.
--- NOTE | 2022-11-30 10:41 | PC.NURSE ---
pt left the floor, ambulated with company of friend to private vehicle
[2022-11-30 10:43] VITALS: BP 125/81; PULSE 70; RESP 18; TEMP 36.8; O2SAT 93
== END 2022-11-30 10:44 | disposition home or self-care (01) ==
LOC: ER 19:03 → MEDSURG 20:15
PROVIDERS: Family Medicine; Admitting Provider Surgery; Emergency Provider Emergency Medicine; PCP Otolaryngology; Visit Provider Surgery
PROC: 0FT44ZZ Resection of Gallbladder, Percutaneous Endoscopic Approach (ICD-10-PCS; CPT 47562; principal; 2022-11-29 13:25)
DX: K80.10 Calculus of gallbladder with chronic cholecystitis without obstruction (principal); K82.A1 Gangrene of gallbladder in cholecystitis
CPT/HCPCS: 47562; 36415; 74181; 76705; 80053; 81003; 83690; 85025; 87040; 88304; 96365; 96375; 96376; 99285; G0378; J1100; J1170; J2270; J2405; J2543; J2704; J3010; J3490; J7030; Q0162

== ENCOUNTER → 2022-12-11 13:53 | Outpatient (BNVA) | payer MEDICARE, SELFPAY | PROVIDERS: PCP Otolaryngology; Visit Provider Surgery | DX: Z98.890 Other specified postprocedural states (principal); Z90.49 Acquired absence of other specified parts of digestive tract | CPT/HCPCS: 99024 ==

== ENCOUNTER 2023-03-17 05:18 | Inpatient (IN) | payer MEDICARE, SELFPAY ==
[2023-03-17] VITALS (109 sets, daily range): BP systolic 95–232; BP diastolic 53–117; PULSE 46–82; RESP 10–32; TEMP 35.7–37.2; O2SAT 92–98; BMI 25.2
--- NOTE | 2023-03-17 05:26 | ECG_ITS ---
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 Measurements Intervals [place] Rate: 60 P: 56 SC: 135 QRS: 24 QRSD: 102 T: 67 QT: 374 QTc: 374 Interpretive Statements SINUS RHYTHM ST ELEVATION INFERIOR INJURY, ACUTE MT MODERATE ST DEPRESSION [0.05+ mV ST DEPRESSION] No previous ECG available for comparison Electronically Signed On 03-17-2023 16:16:20 CDT by Gigi Tomlinson M.D. [id number] f
--- NOTE | 2023-03-17 05:26 | XRR_ITS ---
PROCEDURE INFORMATION: Exam: XR Chest Exam date and time: 03/17/2023 5:29 AM Age: 67 years old Clinical indication: Chest pressure; Prior surgery; Surgery date: 6+ months; Surgery type: Gb; Patient HX: Chest pain with st elevation; Additional info: Cp TECHNIQUE: Imaging protocol: Radiologic exam of the chest. Views: 1 view. COMPARISON: No relevant prior studies available. FINDINGS: Lungs: No CHF/pulmonary edema. Visible lungs appear essentially clear. Pleural spaces: No visible pneumothorax. No definite pleural fluid. Heart/Mediastinum: Heart size appears upper range of normal. Vasculature: Moderate aortic tortuosity. Bones/joints: No significant acute finding. XR/XR chest 1V portable [id number] IMPRESSION: 1. No definite CHF or pneumonia. 2. Other findings discussed above.
[2023-03-17] MEDS: morphine 4 mg/mL SDV 1 mL IVP (05:39)
[2023-03-17] MEDS: ondansetron 2 mg/ML SDV 2 mL 4 MG IVP ×2 (05:39→15:29)
--- NOTE | 2023-03-17 05:40 | W.ED.BACK ---
HPI - Back Pain/Injury General: Chief Complaint: Back Pain/Injury Stated Complaint: shoulder pain Time Seen by Provider: 03/17/23 05:20 History of Present Illness: 67-year-old male with no prior history of coronary disease. He is not a smoker. He is nondiabetic. He presents with pain between his shoulders. He notes that this started last night around 9 PM. He took a Tylenol, and went to bed. He has had pain most of the evening. He denies shortness of breath. He is diaphoretic. He states that he is never had an angiogram or other testing on his heart. His pain is improved at this point. Associated symptoms: Reports nausea; Deny abdominal pain, chills, fever(s) or vomiting Review of Systems Const: Denies: fever(s), chills or body aches Eyes: Denies: change in vision Card: Reports: chest pain; Denies: palpitations Resp: Denies: dyspnea, productive cough, non-productive cough or wheezing GI: Reports: nausea; Denies: abdominal pain, vomiting, diarrhea or hematochezia Skin/Breast: Denies: rash Neuro: Denies: headache(s), weakness in extremities, dizziness or confusion PFSH ED PFSH: Surgical History Hx laparoscopic cholecystectomy 11/29/22 Dr. Watt Physical Exam Const: GENERAL APPEARANCE: cooperative and ill appearing; not frail appearing HENMT: COMMON NORMALS: normocephalic, atraumatic and Normal external nose present HEAD & SCALP: normocephalic and atraumatic FACE & SINUS: normal facial exam and face symmetric NOSE: Normal external nose present Eye: COMMON NORMALS: Equal, round and reactive pupils present and EOMs intact bilaterally PUPIL: Yes Equal, round and reactive pupils present Neck/C-Spine: GENERAL: Yes trachea midline Chest: CHEST: Yes Symmetrical chest wall rise Resp: COMMON NORMALS: normal respiratory effort, No retractions, No use of accessory muscles and clear to auscultation bilaterally AUSCULTATION: clear to auscultation bilaterally Cardio: COMMON NORMALS: regular rate and regular rhythm RATE: regular rate RHYTHM: regular rhythm GI: COMMON NORMALS: Normal to inspection, nondistended, normoactive bowel sounds present Extremity: COMMON NORMALS: no pedal edema Neuro: KIARA COMA SCALE: document GCS findings Kiara coma scale eye opening: Spontaneous [place] coma scale verbal response: Orientated Kiara coma scale motor response: Obey commands [place] coma scale total score: 15 SENSORY EXAM: Yes extremities (intact) Psych: COMMON NORMALS: speech normal SPEECH: Yes normal speech Skin: COMMON NORMALS: no rashes or lesions noted GENERAL SKIN EXAM: no rashes or lesions noted Course Vital Signs: Vital signs: Vital Signs Temperature 96.2 F L 03/17/23 05:22 Pulse Rate 64 03/17/23 05:22 Respiratory Rate 16 03/17/23 05:22 Blood Pressure 232/117 03/17/23 05:22 Pulse Oximetry 97 03/17/23 05:22 MDM - Back Pain/Injury Medical Decision Making EKG is done on the patient's arrival. It shows ST elevation in leads II, III, aVF with some anterior reciprocal changes. Cardiology was contacted immediately. STEMI alert was activated. Patient is receiving heparin 4000 units, Plavix 600 mg, and aspirin. Morphine and Zofran were also ordered. He is quite hypertensive. We will retest his blood pressure. Chest x-ray reveals some interstitial opacities, likely early heart failure. Carbon Coating Machine Operator team is underway to evaluate the patient in prep for angiogram. Labs 03/17/23 05:40 03/17/23 05:40 XR interpretation done by ED provider, pending radiology final review Critical Care Time Critical Care Time: Critical Care Time: Yes Total Critical Care Time: 35 Attestation: This case had a high probability of a clinically significant, sudden, or life threatening deterioration of this patient's condition which required my full and direct attention, intervention and personal management. Time excludes any procedures performed. Discharge Plan Discharge Patient Disposition: Admitted As Inpatient Clinical Impression: ST elevation (STEMI) myocardial infarction Condition: Critical Coding Level of Care Code ED Manager Freelance for Masoud Hernandez
[2023-03-17] MEDS: heparin 5,000 unit/mL INJ 1 mL 4000 UNIT IVP (05:42)
[2023-03-17] MEDS: clopidogrel 300 mg Tablet 600 MG PO (05:42)
--- NOTE | 2023-03-17 05:43 | XACV_ITS ---
Exam Room: 2 Ht: 178 cm Wt: 80 kg BSA: 1.99 m2 Gender: Male : 1955 Exam Priority: Routine Procedure(s): Procedure Description: Diagnostic procedure Procedure Description: PCI procedure Procedure Description: Drug Eluting Coronary Stent Procedure Description: PTCA Procedure Description: Miscellaneous Procedure Description: ACT Procedure Description: Coronary Angiography Kip DAO; Diagnostic Cath Status: Emergency Diagnostic Findings * INDICATION: 67 year old male with no significant prior cardiac history has presented to hospital with severe pain between shoulder blades. Has nausea and diaphoresis. It started at 9 PM, about 8 to 9 hours prior to presentation. It has improved some. EKG shows ST elevation [place] in inferior leads. Cardiac Billing And Quality Technician was emergently activated.. * Osital Right Coronary Artery: severe 90% stenosis, GEORGE: 3 flow. * First Obtuse Marginal Branch Segment: total thrombotic occlusion, GEORGE: 0 flow. This was culprit vessel for ST elevation [place].. * Left Anterior Descending has no significant disease. * Left Main has no disease. * Circumflex has no disease. * Coronary angiography shows right dominance. PCI Status: Emergency PCI Indication: STEMI - Immediate PCI for STEMI Interventional Findings * PROCEDURE DETAIL: As ST elevations were in inferior leads, initially we engaged RCA with 4 guide catheter. There was severe ostial disease however RCA had good flow. There was significant dampening of pressures with engagement of the vessel. We then engaged left main artery with XB 3.5 guide catheter. 0.014 run-through guidewire was used to cross the totally occluded OM1. It was predilated with a 2.5 x 12 mm semicompliant balloon. This was followed by placement of 3.5 x 15 mm resolute [place] drug-eluting stent. There was residual distal lesion noted at this time. We placed a second stent that was a 3.0 x 18 mm in length. At this time final angiogram was performed that showed excellent stent expansion, no residual stenosis and GEORGE-3 flow. Guidewire and guide catheter were removed. We then turned our attention to ostial RCA stenosis. We engaged RCA with JR4 diagnostic catheter however with that patient went into wide-complex tachycardia. He had to be cardioverted as IV metoprolol could not convert him back to normal sinus rhythm. He went back into normal sinus rhythm. We then switched to JR4 guide catheter. While catheter was disengaged, we wired the vessel with run-through wire. We predilated the stenosis with 2.5 x 12 mm semicompliant balloon. This was followed by placement of 3.0 x 15 mm resolute [place] drug-eluting stent. We postdilated the stent with 3.5 x 6 mm NC balloon at high pressure. At this time final angiogram was performed that showed excellent stent expansion and no residual stenosis. Guide catheter were removed. Patient left the Billing And Quality Technician in a stable condition.. * Proximal Right Coronary Artery: 90% stenosis treated with a Drug Eluting Stent. 0% residual stenosis, GEORGE: 3 flow. * First Obtuse Marginal Branch Segment: 100% stenosis treated with a Balloon, MDT R MARIAH 3.5X15 VEE, and MDT R MARIAH 3.0X18 VEE. 0% residual stenosis, GEORGE: 3 flow. Conclusions 1. Total thrombotic occlusion of OM1. This was 2. culprit lesion for ST elevation [place]. 3. S/p successful revascularization with 2 stents.. 4. Critical ostial RCA stenosis. Status post PCI with 1 stent. 5. Proximal Right Coronary Artery was treated with a Drug Eluting Stent. 6. First Obtuse Marginal Branch Segment was treated with a Balloon, Drug Eluting Stent, and Drug Eluting Stent. Recommendations * Dual antiplatelet therapy with aspirin and Plavix for at least 1 year. * High intensity statin therapy. * Outpatient cardiology follow-up in 2 weeks. Interventional RX Recommendation: PCI w/o planned CABG Diagnostic RX Recommendation: PCI w/o planned CABG Anticoagulation: Heparin Pressures Phase:Rest AO : 202 / 85 ( 130 ) @ 7:15:00 AM 200 / 86 ( 130 ) @ 7:21:00 AM 180 / 77 ( 118 ) @ 7:21:00 AM 144 / 0 ( 71 ) @ 7:25:00 AM 176 / 80 ( 121 ) @ 7:27:00 AM 101 / 66 ( 82 ) @ 7:39:00 AM / ( 467 ) @ 7:40:00 AM 134 / 88 ( 109 ) @ 7:41:00 AM 160 / 104 ( 116 ) @ 7:45:00 AM 200 / 108 ( 124 ) @ 7:46:00 AM 162 / 69 ( 98 ) @ 7:47:00 AM 0 / -5 ( -3 ) @ 7:48:00 AM 184 / 77 ( 113 ) @ 7:50:00 AM 114 / 68 ( 90 ) @ 7:55:00 AM 30 / 20 ( 22 ) @ 8:05:00 AM 96 / 55 ( 77 ) @ 8:12:00 AM Clinical Evaluation EBL: 5mL-10mL Procedural Details Admit Source: Emergency department. Pre-Procedure Time Out. Identified patient by full name and date of as verbalized by the patient/guarantor. Does the consent match the physician's order: N/A Emergent; Informed Consent not obtained due to time critical life threat. Accurate & Complete Informed Consent: N/A Emergent; Informed Consent not obtained due to time critical life threat. Inpatient/Outpatient History & Physical on Chart: N/A Emergent; Informed Consent not obtained due to time critical life threat. If H&P is completed, is and addenduem needed: N/A Emergent; If yes, is the addendum complete: N/A Emergent. Visualize and Verify Site with Patient/Guarantor: N/A. Relevant Radiology Images available: No. Pre-op teaching completed and patient verbalized understanding. The risks, benefits, and alternatives of sedation and/or procedure were discussed by physician. The patient agrees to continue. Procedure started. [facility] Clinical Fraility Score: 4: Vulnerable. Billing And Quality Technician Indications: ACS <= 24 hours. Chest Pain Symptom Assessment: Typical Angina Symptoms. Correct patient, site and procedure confirmed by cath team. Current diagnosis: STEMI. PERRLA. Strong, equal hand occupational health professional bilaterally. Lungs clear x 5 lobes. IV Site on Arrival: 18 gauge in the right anticubital. IV Fluids: 0.9% NaCl at 75ml/hr. 0 mL infused prior to laboratory chemical assistant. Pre Procedural Pulses: bilateral radial was 3+. Pre Procedural Pulses: bilateral dorsalis pedis was 2+. Oxygen started at 2liters/min via nasal canula. bilateral groins was prepped with chloroprep then draped in the usual sterile fashion. Physician notified. Baseline sample Acquired. HR: 61 BPM. Physician arrived. Physician scrubbed in. Immediate Pre-Procedure Time Out. Correct Patient: Yes; Correct Procedure: Yes; Correct Site: Yes; Correct Patient Position: Yes; Correct Supplies: Yes; Dried Flammable Prep: Yes; Blood Products Available: Yes;. Lidocaine 1% infiltrated to the right groin. Arterial access obtained with micropuncture set. 6 luxembourger JR 4 guide catheter was inserted over the wire. Multiple views taken of right coronary artery. Guide catheter out over exchange wire. A 5 luxembourger JL4 catheter in over wire. Multiple views taken of left coronary artery. Catheter removed over the exchange wire. 6 luxembourger XB 3.5 SH guide catheter was inserted over the wire. PCI Indication: STEMI. Runthrough guidewire was advanced through the guide catheter to lesion in the OM. Guidewire advanced across lesion. Balloon inserted to lesion in the OM. Inflation number : 1 A AB TREK 2.50X12 RX BALLOON was prepped and advanced across the 1st Ob Danae , then inflated to 8 CHIARA for 0:10 seconds. Balloon out. Stent inserted to lesion in the OM. Inflation Number : 2 A MDT R MARIAH 3.5X15 VEE -Lot Number#[id number] EXP 11-08-2024 was prepped and advanced across the 1st Ob Danae. The stent was deployed at 12 CHIARA for 0:21 seconds. Stent balloon out over wire. Results checked. Inflation Number : 3 A MDT R MARIAH 3.0X18 VEE -Lot Number# [id number] EXP 10-05-25 was prepped and advanced across the 1st Ob Danae. The stent was deployed at 12 CHIARA for 0:16 seconds. Stent balloon out over wire. Results checked. Runthrough wire out. Angiography performed, results checked. Guide catheter out over exchange wire. ACT drawn. Results 361 seconds. Therapeutic limits - pre-heparin administration 90-150 seconds and monitoring heparin during a vascular procedure >250 seconds. A 5 luxembourger JR4 catheter in over wire. Synchronized Cardioversion at 100Joules performed. Catheter out. 6 luxembourger JR 4 guide catheter was inserted over the exchange wire. Runthrough guidewire was advanced through the guide catheter to lesion in the ostial RCA. Balloon inserted to lesion in the ostial RCA. Guidewire advanced across lesion. Inflation number: 1 The AB TREK 2.50X12 RX BALLOON was reinflated across the Prox RCA, to 8 CHIARA for 0:15 seconds. Inflation number: 2 The AB TREK 2.50X12 RX BALLOON was reinflated across the Prox RCA, to 10 CHIARA for 0:12 seconds. Inflation number: 3 The AB TREK 2.50X12 RX BALLOON was reinflated across the Prox RCA, to 10 CHIARA for 0:16 seconds. Inflation number: 4 The AB TREK 2.50X12 RX BALLOON was reinflated across the Prox RCA, to 8 CHIARA for 0:10 seconds. Balloon out. Runthrough wire out. Exchange wire in, Guide repositioned. Exchange wire out. Runthrough wire in through guide catheter. Runthrough wire out. Exchange wire in, Guide repositioned. Exchange wire out. Runthrough wire in through guide catheter. Guidewire advanced across lesion. Second Runthrough guidewire was advanced through the guide catheter to lesion in the prox RCA. Guidewire advanced across lesion. Stent inserted to lesion in the Ostial RCA. Second runthrough wire out. Inflation Number : 1 A MDT R MARIAH 3.0X15 VEE -Lot Number# [id number] EXP 08-25-2024 was prepped and advanced across the Prox RCA1. The stent was deployed at 12 CHIARA for 0:21 seconds. Stent balloon out over wire. Balloon inserted to lesion in the ostial RCA. Inflation number : 2 A MDT NC EUPHORA RX [id number] BALLOON was prepped and advanced across the Prox RCA1 , then inflated to 14 CHIARA for 0:10 seconds. Inflation number: 3 The MDT NC EUPHORA RX [id number] BALLOON was reinflated across the Prox RCA1, to 14 CHIARA for 0:09 seconds. Balloon out. Runthrough wire out. Guide catheter out over exchange wire. ACT drawn. Results 331 seconds. Therapeutic limits - pre-heparin administration 90-150 seconds and monitoring heparin during a vascular procedure >250 seconds. A 5 luxembourger JR4 catheter in over wire. Results checked. Catheter out over exchange wire. A Suture was successful obtaining hemostatsis at the Right Femoral artery insertion site. Sheath(s) sutured into position with 2-0 silk and sterile 4x4's and Op-site applied over the site. No oozing or signs and symptoms of hematoma noted. Arterial sheath flushed and connected to tranducer and pressure bag with heparinized saline. Post Procedure: Pulses reassessed and unchanged. PERRLA. Strong, equal hand occupational health professional bilaterally. No VTE prophylaxis required. Post-op diagnosis: STEMI occluded OM , PCI placement of 2 stents. Critical RCA stenosis status post PCI 1 stent placement. Medication's Wasted: Heparin = 3000 unit. Medication's Wasted: Nitro = 49.8 mg. Medication's Wasted: Other = Versed 1 mg. Total IV fluids: 350 mL. Complications: None. Estimated blood loss: 5mL-10mL. Responsiveness - Normal response to verbal stimuli; alert and oriented, PERRLA. Airway - Unaffected, no intervention required; spontaneous ventilation. Circulation: W/N/L, pulses unchanged. Nausea/Vomiting: No. Procedure completed. Patient transferred by bed to ICU. Vital chart was stopped. Access Site Site: Right Femoral artery Sheath Size: 6 Fr Hemostasis Method: Suture Hemostasis Success: Successful Procedure Medications Start: 6:08 AM Stop: 6:08 AM Medication: Versed Amount: 1 mg Route: I.V. Start: 6:08 AM Stop: 6:08 AM Medication: Fentanyl Amount: 50 mcg Route: I.V. Start: 6:17 AM Stop: 6:17 AM Medication: Heparin Amount: 4000 units Route: I.V. Start: 6:29 AM Stop: 6:29 AM Medication: Nitrogylcerin Amount: 200 mcg Route: I.C. Start: 6:30 AM Stop: 6:30 AM Medication: Heparin Amount: 1000 units Route: I.V. Start: 6:39 AM Stop: 6:39 AM Medication: Nitrogylcerin Amount: 200 mcg Route: I.C. Start: 6:42 AM Stop: 6:42 AM Medication: Lopressor (metoprolol) Amount: 5 mg Route: I.V. Start: 6:44 AM Stop: 6:44 AM Medication: Versed Amount: 1 mg Route: I.V. Start: 6:44 AM Stop: 6:44 AM Medication: Fentanyl Amount: 50 mcg Route: I.V. Start: 6:45 AM Stop: 6:45 AM Medication: Versed Amount: 1 mg Route: I.V. Start: 7:06 AM Stop: 7:06 AM Medication: Heparin Amount: 1000 units Route: I.V. I, the attending physician, have reviewed and verified all procedure medications. Yes, all medications given per verbal order History/Risk Factors Hypertension: No Dyslipidemia: No Peripheral Arterial Disease (PAD): No Myocardial Infarction (WY): No Obesity: No Renal Disease: No Prior Interventions PCI: No CABG: No Valve Surgery: No Report Signatures Finalized by Gigi Tomlinson MD on 03/18/2023 11:14 AM
[2023-03-17] MEDS: aspirin 325 mg Tablet PO (05:49)
[2023-03-17 05:51] LABS: Basophils % 0.5 %; Eosinophils # 0.1 10^3/uL (0.0-0.8); Eosinophils % 1.5 %; Hematocrit 51.2 % (37-53); Lymphocytes # 2.7 10^3/uL (0.8-4.8); Lymphocytes % 30.4 %; Mean Corpuscular HGB Conc 34.4 g/dL (30-55); Mean Corpuscular Hemoglobin 28.7 pg (27-33); Mean Corpuscular Volume 83.5 fl (82-101); Mean Platelet Volume 9.3 fL (7.4-10.4); Monocytes # 0.5 10^3/uL (0.2-0.9); Monocytes % 6.2 %; Neutrophils # 5.32 10^3/uL (1.8-7.7); Neutrophils % 61.1 %; Nucleated Red Blood Cells % 0 %; Platelet Count 280 10^3/cmm (157-399); Red Blood Count 6.13 10^6/uL (3.85-5.65); Red Cell Distribution Width 13.4 % (12.1-15.1); White Blood Count 8.71 10^3/uL (3.29-11.43)
--- NOTE | 2023-03-17 06:01 | P.HP_ITS ---
Providers/Chief Complaint Admitting Physician: Gigi Tomlinson MD/ Interventional cardiology Primary Care Provider: Lyndon Leon Chief Complaint: Shoulder pain History of Present Illness Edil Gr is a 67 year old male with no significant prior cardiac history has presented to hospital with severe pain between shoulder blades. Has nausea and diaphoresis. It started at 9 PM, about 8 to 9 hours prior to presentation. It has improved some. EKG shows ST elevation [place] in inferior leads. Cardiac Warehouse And Receiving Supervisor was emergently activated. Review of Systems Const: Denies: fever(s), chills or body aches Eyes: Denies: change in vision Card: Reports: chest pain; Denies: palpitations Resp: Denies: dyspnea, productive cough, non-productive cough or wheezing GI: Reports: nausea; Denies: abdominal pain, vomiting, diarrhea or hematochezia Skin/Breast: Denies: rash Neuro: Denies: headache(s), weakness in extremities, dizziness or confusion Medications/Allergies Home Medications Medication Instructions Recorded Confirmed Last Taken Type amoxicillin 875 mg-potassium 1 tab PO BID #20 tabs 11/30/22 12/11/22 Unknown Rx clavulanate 125 mg tablet docusate sodium 100 mg capsule 100 mg PO BID #14 caps 11/30/22 12/11/22 Unknown Rx (DOK) hydrocodone 10 mg-acetaminophen 1 tab PO Q6H PRN pain #20 tabs 11/30/22 12/11/22 Unknown Rx 325 mg tablet Allergies Allergy/AdvReac Type Severity Reaction Status Date / Time No Known Allergies Allergy Verified 12/11/22 14:03 PFSH Acute PFSH: Surgical History Hx laparoscopic cholecystectomy 11/29/22 Dr. Watt Vitals/I&O/Wt Last Vital Signs Temp 96.2 F L 03/17/23 05:22 Pulse 64 03/17/23 05:22 Resp 16 03/17/23 05:22 BP 232/117 03/17/23 05:22 Pulse Ox 97 03/17/23 05:22 Weight last 48 hrs Weight 176 lb Physical Exam Narrative: GENERAL: Patient is alert, awake and oriented x3. [] NECK: No jugular vein distension. [] HEENT: No cyanosis. No icterus. No pallor. [] HEART: Regular S1 and S2. No murmur, rub or gallop. [] LUNGS: Clear to auscultate bilaterally. [] CENTRAL NERVOUS SYSTEM: Grossly nonfocal. [] EXTREMITIES: Lower extremities with 1+ edema bilaterally. Data 03/17/23 05:40 03/17/23 05:40 A&P Assessment and plan (1) ST elevation (STEMI) myocardial infarction: Plan Patient has acute inferior wall ST elevation ME. He will emergently be taken to cardiac Warehouse And Receiving Supervisor. Risks and benefits of the procedure were discussed. He understands the risks and benefits and wants to proceed. He has received aspirin, Plavix and heparin bolus. We will order echocardiogram. Will be transferred to ICU post procedure Attestations Medical Necessity Statement*: Care expected to cross 2 midnights. Patient has presented with acute ST elevation [place] and going for emergent cardiac catheterization Coding Level of Care Code Acute Code for Masoud Fwd Diagnoses ST elevation (STEMI) myocardial infarction I21.3
[2023-03-17 06:08] LABS: INR 0.89 (0.8-1.2); Partial Thromboplastin Time 30.8 SECONDS (23.9-36.7)
[2023-03-17 06:14] LABS: Blood Urea Nitrogen 16 mg/dL (8-23); Calcium 9.5 mg/dL (8.5-10.5); Carbon Dioxide 28 mmol/L (22-29); Chloride 104 mmol/L (98-107); Creatine Phosphokinase 74 U/L (39-308); Glomerular Filtration Rate 74.1 mL/min (90-130); Glucose 131 mg/dL (65-115); Osmolality Calculated 295 mOsm/kg (285-295); Sodium 141 mmol/L (136-145); Troponin(5th) Baseline 24 ng/L (0-15)
[2023-03-17 06:56] LABS: NT Pro B Type Natriuretic Pept 68 pg/mL (0-125)
--- NOTE | 2023-03-17 07:41 | USCV_ITS ---
Edil Gr Age: 67 Gender: M : 1955 Exam Date: 03/17/2023 09:56 Ordering Phys: Gigi Tomlinson M.D ([email or web address]) Technologist: Wood Gomez Exam Location: [facility] [place] Indication: post STEMI BP: / HR: Rhythm: Sinus Technical Quality: Adequate MEASUREMENTS (Male / Female) Normal Values FINDINGS Left Ventricle Left ventricle is normal in size. LV systolic function is normal with EF 50-55%. Mild hypokinesis of inferolateral wall is seen. Grade 1 diastolic dysfunction. Right Ventricle Normal in size and function Right Atrium Not well visualized Left Atrium Normal in size Mitral Valve Structurally normal mitral valve. Mild mitral regurgitation. Aortic Valve Structurally normal aortic valve. Doppler exam not performed. Tricuspid Valve Not well-visualized Pulmonic Valve Not well-visualized Pericardium Normal Aorta Normal in size IVC Not well visualized CONCLUSIONS LV systolic function is normal with EF 50 to 55%. Mild hypokinesis of inferiolateral wall is seen. Grade 1 diastolic dysfunction. Mild mitral regurgitation. No comparion studies are available. Gigi Tomlinson MD (Electronically Signed) Final Date: 17 March 2023 12:42 S
--- NOTE | 2023-03-17 07:53 | PC.PHAR ---
pt states he takes no rx medications-pt states just takes tylenol prn pt states took one tab last night states before that he hasnt taken since april 2022-
[2023-03-17] MEDS: sodium chloride 0.9% 1,000 ML 100 ML IV ×2 (08:08→18:30)
--- NOTE | 2023-03-17 08:22 | ECG_ITS ---
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 Measurements Intervals [place] Rate: 63 P: 56 HI: 181 QRS: 19 QRSD: 107 T: 70 QT: 413 QTc: 425 Interpretive Statements SINUS RHYTHM LOW QRS VOLTAGE IN PRECORDIAL LEADS [QRS DEFLECTION < 1.0 mV IN CHEST LEADS] NONSPECIFIC T-WAVE ABNORMALITY Compared to ECG 03/17/2023 05:28:35 Low QRS voltage now present T-wave abnormality now present ST (T wave) deviation no longer present Early repolarization no longer present Electronically Signed On 03-17-2023 16:18:55 CDT by Gigi Tomlinson M.D. [id number]
[2023-03-17] MEDS: losartan 50 mg Tablet 75 MG PO (10:17)
[2023-03-17] MEDS: aspirin 81 mg EC Tablet PO (10:17)
[2023-03-17] MEDS: clopidogrel 75 mg Tablet PO (10:17)
[2023-03-17] MEDS: metoprolol succinate ER (24 HR) 25 mg Tablet 12.5 MG PO (10:17)
[2023-03-17 10:37] LABS: Partial Thromboplastin Time 54.7 SECONDS (23.9-36.7)
[2023-03-17 10:55] LABS: Troponin 5 6HR 3553 ng/L (0-15); Troponin 5 6HR Delta 3529 ng/L (0-12)
--- NOTE | 2023-03-17 11:26 | ECG_ITS ---
[facility] Test Date: 2023-03-17 Pat Name: Edil Gr Department: Room: [facility]06 Gender: Male Documentation Engineer: : 1955 Requested By: Claude Edmondson Order Number: [id number] Jeff MD: Gigi Tomlinson M.D. Measurements Intervals [place] Rate: 55 P: 53 DE: 174 QRS: 8 QRSD: 98 T: 69 QT: 395 QTc: 379 Interpretive Statements SINUS BRADYCARDIA ST ELEVATION, CONSIDER INFERIOR INJURY [MARKED ST ELEVATION W/O NORMALLY INFLECTED T-WAVE IN II/aVF] ACUTE VA Compared to ECG 03/17/2023 08:22:50 ST (T wave) deviation now present Myocardial infarct finding now present Sinus rhythm no longer present T-wave abnormality no longer present Electronically Signed On 03-17-2023 16:18:23 CDT by Gigi Tomlinson M.D. [id number]
[2023-03-17 12:23] LABS: Partial Thromboplastin Time 30.1 SECONDS (23.9-36.7)
[2023-03-17] MEDS: fentaNYL 50 mcg/mL INJ 2mL IVP (13:45)
[2023-03-17] MEDS: hyDRALAzine 20 mg/mL INJ 1 mL IVP (14:20)
--- NOTE | 2023-03-17 16:27 | ECG_ITS ---
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 Measurements Intervals [place] Rate: 58 P: 50 ME: 168 QRS: -1 QRSD: 102 T: 70 QT: 415 QTc: 411 Interpretive Statements SINUS BRADYCARDIA ST ELEVATION, CONSIDER INFERIOR INJURY [MARKED ST ELEVATION W/O NORMALLY INFLECTED T-WAVE IN II/aVF] ACUTE NM Compared to ECG 03/17/2023 11:24:01 No significant changes Electronically Signed On 03-17-2023 18:46:12 CDT by Gigi Tomlinson M.D. [id number]
[2023-03-17] MEDS: metoclopramide 5 mg/mL SDV 2 mL IVP (16:32)
[2023-03-17] MEDS: ALPRAZolam 0.5 mg Tablet 0.25 MG PO (16:48)
--- OUTSIDE RECORDS SUMMARY | 2023-03-17 17:18 | XMS_ITS | Continuity of Care Document ---
Author Name Unknown Organization [facility] Address [address] [place] [address]- Care Team Providers Care Piped Buttonhole Machine Operator Name Role Phone Jarvis Leon DO Primary Care Physician Encounter 12/09/22 - 12/10/22 [facility] [address] [place] [address]- [place] Attending Physician: Briana Zapata Allergies, Adverse Reactions, Alerts No Known Allergies Assessment and Plan Future Appointments Appointment Date:03/05/2023 10:30:00 AM Scheduled Provider:Armin Zayas MD Location:[facility] Appointment Type:Established Patient Appointment Date:03/05/2023 11:00:00 AM Scheduled Provider:Briana Zapata Location:[facility] Appointment Type:Established Patient Medications doxycycline = 1 tab, By mouth, BID, for stye left eye, 14 days, 0, Substitution Permitted Start Date: 04/23/22 Status: Ordered Social History Social History Type Response Smoking Status Never smoker; Smokel ess tobacco use: Never; Has the patient smoked in the last 365 days, even once? No; 2nd hand smoke exposure. No entered on: 04/23/22 Sex Male Implantable Device List Procedure Provider Procedure Date Device Type Site Cochlear Implant Unknown 04/29/22 Unknown Ear, Lef t Device Identifier Serial Number Lot or Batch Number Manufacturing Date Expiration Date Distinct Identification Code MRI Safety Implantable Status Assigning Authority Unknown [id number] Unknown Unknown 01/10/24 Unknown Unknown Active Unknown Patient Care team information Care Team Personnel Name: Jarvis Leon DO Position: 2 Restricted Providers Member Role: Primary Care Physician Address: Address: [address] [place] [id number]- [place] Care Team Related Persons Name: JENNIFER MONDRAGON
--- OUTSIDE RECORDS SUMMARY | 2023-03-17 17:18 | XMS_ITS | Continuity of Care Document ---
Author Name Unknown Organization [facility] Address [address] [place] [address]- Care Team Providers Care Ict Business Development Manager Name Role Phone Leon DO Jarvis G Primary Care Physician [phone] Encounter 11/19/22 - 11/20/22 [facility] [address] [place] [address]- [place] Encounter Diagnosis Bilateral deafness(Discharge Diagnosis) - 11/19/22 Attending Physician: Armin Zayas MD Allergies, Adverse Reactions, Alerts No Known Allergies Assessment and Plan Extracted from: Title:Office Visit - Comprehensive Author:Armin Zayas MD Date:11/19/22 1.??Bilateral deafness(Unspe cified hearing loss, bilateral: H91.93) Will discuss with audiology for placement of R CI.?? We reviewed??the risks and benefits, alternatives??of cochlear??implantation and the patient is willing to proceed??when the??time is right for implantation.?? He will return??to clinic 2 weeks postoperatively.? Michael Kirkland scribing for and in the presence of Dr. Armin Zayas MD. Portions of this note were transcribed by a professional scribe as noted. I personally performed the history, physical exam, and medical decision making and confirmed the accuracy of the information in the transcribed note. Future Appointments Appointment Date:12/09/2022 10:00:00 AM Scheduled Provider:Briana Zapata Location:-[facility] Appointment Type:Established Patient Medications doxycycline = 1 tab, By mouth, BID, for stye left eye, 14 days, 0, Substitution Permitted Start Date: 04/23/22 Status: Ordered Vital Signs Most recent to oldest [Reference Range]: 1 2 Height (inches) (Clinical) 68 in (11/19/22 10:41 AM) 68 in (11/19/22 10:18 AM) Weight (kg) (Clinical) 88.82 kg (11/19/22 10:18 AM) BMI (Clinical) 0 kg/m2 (11/19/22 10:41 AM) 29.7 kg/m2 (11/19/22 10:18 AM) Social History Social History Type Response Smoking [...] MRI Safety Implantable Status Assigning Authority Unknown [id number] Unknown Unknown 01/10/24 Unknown Unknown Active Unknown Otolaryngology Outpatient Note * Armin Zayas MD: PERFORM Armin Zayas MD: PERFORM, MODIFY Armin Zayas MD: MODIFY, MODIFY, MODIFY Michael Kirkland: MODIFY Event Display: ENT Office/Clinic Note Authored Date: [id number] Chief Complaint CI follow up Nurse Intake Nursing Intake?? General Information?? Physicians and Specialties: Dr. Leon DO ENT (11/19/22) History of Present Illness KEILY RODRIGUEZ??(67 Years??Male)??presents to clinic today for??CI follow-up. Pt has been wearing a hearing aid in the R ear since having a CI on the L. Pt would like to have a CI placed on the R. Pt denies any SANTIZO when wearing his CI for a long period of time. Pt denies any issues since having hisL CI placed. Review of Systems See HPI. All other ROS reviewed as negative or not pertinent. Physical Exam Vitals & Measurements HT:??68??in?? WT:??195.4??lb?? WT:??88.82??kg?? BMI:??0?? General:??Normal appearance, Normal voice and communication, Well developed/nourished.?? Head/Face: Normal appearance, Normal facial strength.?? Eyes:??Normal ocular movement, Normal gaze.?? Nose: Normal external appearance.?? Oral: Normal lips.?? Neck: Normal appearance.?? Respiratory:??Normal effort.?? Neuro/Psych: Oriented to person place and time, Normal mood and affect.?? Additional findings:?? In-Office Procedures Otomicroscopy: [id number] The patient was placed in the supine position and a speculum was inserted into the ear.??The microscope was used to examine the external auditory canal and tympanic membrane. The procedure was repeated on the contralateral side. ?? Findings: AD: normal canal, intact TM, clear middle ear. Minimal cerumen noted. : normal canal, intact TM, clear middle ear. Assessment/Plan 1.??Bilateral deafness(Unspecified hearing loss, bilateral: H91.93) Will discuss with audiology for placement of R CI.?? We reviewed??the risks and benefits, alternatives??of cochlear??implantation and the patient is willing to proceed??when the??time is right for implantation.?? He will return??to clinic 2 weeks postoperatively.? Other Michael Dye scribing for and in the presence of Dr. Armin Zayas MD. Portions of this note were transcribed by a professional scribe as noted. I personally performed the history, physical exam, and medical decision making and confirmed the accuracy of the information in the transcribed note. Problem List/Past Medical History No chronic problems Medications Home Medications (1) Active doxycycline??1 tab,Start_date: 04/23/22,Refills: 0, By mouth, BID Allergies No Known Allergies Social History Alcohol Denies Substance Abuse Denies Tobacco Smoking Status: Never smoker. Smokeless tobacco use: Never. Has the patient smoked in the last 365 days, even once? No. 2nd hand smoke exposure: No. Electronically signed by:Armin Zayas MD 11/19/22 12:24 Patient Care team information Care Team Personnel Name: Jarvis Leon DO Position: 2 Restricted Providers Member Role: Primary Care Physician Address: Address: [address] [place] [address] [id number] Name: Armin Zayas MD Position: PX Physician - ENT Med Service: Otolaryngology (ENT) Member Role: Attending Physician Address: Address: [address] [place] [address] [address] [place], [place] [address] Care Team Related Persons Name: JENNIFER MONDRAGON
--- OUTSIDE RECORDS SUMMARY | 2023-03-17 17:18 | XMS_ITS | Patient Health Record ---
Author Name Unknown Organization [facility] Address [address] [place] [address] Support Name Relationship Address Phone KEILY RODRIGUEZ Guarantor Unknown REASON FOR REFERRAL No Information SOCIAL HISTORY Sex Assigned At : Social History Observation Description Sex Assigned At Unknown PLAN OF TREATMENT No Information
--- OUTSIDE RECORDS SUMMARY | 2023-03-17 17:18 | XMS_ITS | Continuity of Care Document ---
Author Name Unknown Organization [facility] Address [address] [place] [address]- Care Team Providers Care Specialized Developer Name Role Phone Jarvis Leon DO Primary Care Physician Encounter 11/12/22 - 11/13/22 [facility] [address] [place] [address]- [place] Attending Physician: Armin Zayas MD Allergies, Adverse Reactions, Alerts No Known Allergies Assessment and Plan Future Appointments Appointment Date:11/19/2022 10:45:00 AM Scheduled Provider:Armin Zayas MD Location:[facility] Appointment Type:Established Patient Appointment Date:12/09/2022 10:00:00 AM Scheduled Provider:Briana Zapata Location:[facility] Appointment [...] MRI Safety Implantable Status Assigning Authority Unknown [id number] Unknown Unknown 01/10/24 Unknown Unknown Active Unknown Patient Care team information Care Team Personnel Name: Jarvis Leon DO Position: 2 Restricted Providers Member Role: Primary Care Physician Address: Address: [address] [place] [id number] Name: Armin Zayas MD Position: PX Physician - ENT Med Service: Otolaryngology (ENT) Member Role: Attending Physician Address: Address: [address] [place] [address]- Care Team Related Persons Name: JENNIFER MONDRAGON
--- OUTSIDE RECORDS SUMMARY | 2023-03-17 17:18 | XMS_ITS | Continuity of Care Document ---
Author Name Unknown Organization [facility] Address [address] [place] [address]- Care Team Providers Care 3D Designer Name Role Phone Jarvis Leon DO Primary Care Physician [phone] Encounter 09/27/22 - 09/28/22 [facility] [address] [place] [address]- Attending Physician: PCP, NONE Allergies, Adverse Reactions, Alerts No Known Allergies Assessment and Plan Future Appointments Appointment Date:11/12/2022 10:45:00 AM Scheduled Provider:Armin Zayas MD Location:[facility] [...] MRI Safety Implantable Status Assigning Authority Unknown [id number] Unknown Unknown 01/10/24 Unknown Unknown Active Unknown Patient Care team information Care Team Personnel Name: Jarvis Leon DO Position: 2 Restricted Providers Member Role: Primary Care Physician Address: Address: [address] [place] [address]- [place] Care Team Related Persons Name: JENNIFER MONDRAGON
--- NOTE | 2023-03-17 17:19 | PC.NURSE ---
Sheath removal: @1500,sheath removed, 15 minutes of pressure applied manually. No hemotoma formation, no bleeding noted. Dressing applied. Pulses remain distally. Dressing remains unsoiled at this time.
[2023-03-17 17:26] LABS: Troponin T (5th) Once 3303 ng/L (0-15)
[2023-03-17] MEDS: temazepam 15 mg Capsule PO (18:34)
[2023-03-17] MEDS: atorvastatin 40 mg Tablet 80 MG PO (21:48)
[2023-03-18] VITALS (10 sets, daily range): BP systolic 91–126; BP diastolic 52–65; PULSE 52–65; RESP 16–22; TEMP 37.2; O2SAT 95–97
[2023-03-18] MEDS: sodium chloride 0.9% 1,000 ML 100 ML IV (04:14)
[2023-03-18 06:20] LABS: Basophils % 0.3 %; Eosinophils % 0.3 %; Hematocrit 43.3 % (37-53); Lymphocytes % 19.5 %; Mean Corpuscular HGB Conc 33.9 g/dL (30-55); Mean Corpuscular Hemoglobin 28.5 pg (27-33); Mean Corpuscular Volume 84.1 fl (82-101); Mean Platelet Volume 9.4 fL (7.4-10.4); Monocytes # 0.6 10^3/uL (0.2-0.9); Monocytes % 5.7 %; Neutrophils # 7.71 10^3/uL (1.8-7.7); Neutrophils % 73.6 %; Nucleated Red Blood Cells % 0 %; Platelet Count 226 10^3/cmm (157-399); Red Blood Count 5.15 10^6/uL (3.85-5.65); Red Cell Distribution Width 13.8 % (12.1-15.1); White Blood Count 10.47 10^3/uL (3.29-11.43)
[2023-03-18 06:47] LABS: Blood Urea Nitrogen 17 mg/dL (8-23); Calcium 8.3 mg/dL (8.5-10.5); Carbon Dioxide 23 mmol/L (22-29); Chloride 106 mmol/L (98-107); Glomerular Filtration Rate 83.7 mL/min (90-130); Glucose 101 mg/dL (65-115); Osmolality Calculated 290 mOsm/kg (285-295); Sodium 139 mmol/L (136-145)
[2023-03-18 06:48] LABS: Anion Gap 13.9 (5-19); Potassium 3.9 mmol/L (3.5-5.1)
[2023-03-18] MEDS: losartan 50 mg Tablet 75 MG PO (08:04)
[2023-03-18] MEDS: metoprolol succinate ER (24 HR) 25 mg Tablet 12.5 MG PO (08:04)
[2023-03-18] MEDS: clopidogrel 75 mg Tablet PO (08:04)
[2023-03-18] MEDS: aspirin 81 mg EC Tablet PO (08:04)
--- NOTE | 2023-03-18 08:24 | P.DS_ITS ---
Discharge Providers Date of Admission: 03/17/23 08:00 Date of Discharge: March 18, 2023 Attending Provider at Admission: Gigi Tomlinson M.D Attending Provider at Discharge: Gigi Tomlinson M.D Primary Care Provider: Lyndon Leon Diagnoses at Discharge Discharge Diagnosis (1) ST elevation (STEMI) myocardial infarction: Status: Inactive Reason for Visit Reason for Visit: Shoulder pain Brief History: 67 year old male with no significant prior cardiac history has presented to hospital with severe pain between shoulder blades. Has nausea and diaphoresis. It started at 9 PM, about 8 to 9 hours prior to presentation.? It has improved some.? EKG shows ST elevation OR in inferior leads.? Cardiac Risk Management Director was emergently activated. 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 He underwent successful revascularization with 2 stents. He also had severe ostial RCA stenosis. Post PCI with 1 stent. Patient was observed and stayed stable during hospitalization. No more chest pain. ECHO showed normal LV systolic function with mild hypokinesis of the inferolateral wall. He was discharged home in a stable condition on dual antiplatelet therapy. Physical Exam Narrative: GENERAL: Patient is alert, awake and oriented x3. [] NECK: No jugular vein distension. [] HEENT: No cyanosis. No icterus. No pallor. [] HEART: Regular S1 and S2. No murmur, rub or gallop. [] LUNGS: Clear to auscultate bilaterally. [] CENTRAL NERVOUS SYSTEM: Grossly nonfocal. [] EXTREMITIES: Lower extremities with 1+ edema bilaterally. Discharge Data Studies Completed and Pending Completed Studies During Hospitalization Category Date Time Status XR chest 1V portable [id number] Stat Exams 03/17/23 05:26 Completed CV. echo complete* [id number] Routine Ultrasound 03/17/23 07:41 Completed Pending at discharge Category Date Time Status PRECAST MOLDER request for service Stat Exams 03/17/23 05:43 Taken Basic Metabolic Panel AM LABS Lab 03/19/23 04:00 Ordered Basic Metabolic Panel AM LABS Lab 03/20/23 04:00 Ordered Complete Blood Count w/Auto AM LABS Lab 03/19/23 04:00 Ordered Complete Blood Count w/Auto AM LABS Lab 03/20/23 04:00 Ordered Radiology Impressions Chest X-Ray 03/17/23 05:26 IMPRESSION: 1. No definite CHF or pneumonia. 2. Other findings discussed above. Laboratory Results WBC 10.47 10^3/uL (3.29-11.43) 03/18/23 05:44 RBC 5.15 10^6/uL (3.85-5.65) 03/18/23 05:44 Hgb 14.70 g/dL (11.27-16.99) 03/18/23 05:44 Hct 43.3 % (37-53) 03/18/23 05:44 MCV 84.1 fl (82-101) 03/18/23 05:44 MCH 28.5 pg (27-33) 03/18/23 05:44 MCHC 33.9 g/dL (30-55) 03/18/23 05:44 RDW 13.8 % (12.1-15.1) 03/18/23 05:44 Plt Count 226 10^3/cmm (157-399) 03/18/23 05:44 MPV 9.4 fL (7.4-10.4) 03/18/23 05:44 Neut % (Auto) 73.6 % 03/18/23 05:44 Lymph % (Auto) 19.5 % 03/18/23 05:44 [place] % (Auto) 5.7 % 03/18/23 05:44 Eos % (Auto) 0.3 % 03/18/23 05:44 Baso % (Auto) 0.3 % 03/18/23 05:44 Neut # (Auto) 7.71 10^3/uL (1.8-7.7) H 03/18/23 05:44 Lymph # (Auto) 2.0 10^3/uL (0.8-4.8) 03/18/23 05:44 [place] # (Auto) 0.6 10^3/uL (0.2-0.9) 03/18/23 05:44 Eos # (Auto) 0.0 10^3/uL (0.0-0.8) 03/18/23 05:44 Baso # (Auto) 0.0 10^3/uL (0.0-0.1) 03/18/23 05:44 Nucleated RBC % (auto) 0 % 03/18/23 05:44 Nucleated RBCs # 0.0 /100WBC 03/18/23 05:44 PT 12.30 SECONDS (12.1-14.9) 03/17/23 05:40 INR 0.89 (0.8-1.2) 03/17/23 05:40 APTT 30.1 SECONDS (23.9-36.7) 03/17/23 12:05 Sodium 139 mmol/L (136-145) 03/18/23 05:44 Potassium 3.9 mmol/L (3.5-5.1) 03/18/23 05:44 Chloride 106 mmol/L (98-107) 03/18/23 05:44 Carbon Dioxide 23 mmol/L (22-29) 03/18/23 05:44 Anion Gap 13.9 (5-19) 03/18/23 05:44 BUN 17 mg/dL (8-23) 03/18/23 05:44 Creatinine 0.9 mg/dL (0.7-1.2) 03/18/23 05:44 GFR Calculation 83.7 mL/min (90-130) L 03/18/23 05:44 Glucose 101 mg/dL (65-115) 03/18/23 05:44 Calculated Osmolality 290 mOsm/kg (285-295) 03/18/23 05:44 Calcium 8.3 mg/dL (8.5-10.5) L 03/18/23 05:44 Creatine Kinase 74 U/L (39-308) 03/17/23 05:40 Troponin T Gen 5 ng/L 3303 ng/L (0-15) H* 03/17/23 16:53 Troponin T Baseline 24 ng/L (0-15) H 03/17/23 05:40 Troponin T Hi Sens 6Hr 3553 ng/L (0-15) H 03/17/23 10:12 Troponin T Hi Sens 6Hr Delta 3529 ng/L (0-12) H* 03/17/23 10:12 NT-Pro-B Natriuret Pep 68 pg/mL (0-125) 03/17/23 05:40 Vitals Last Vital Signs Temp 98.9 F 03/17/23 20:15 Pulse 65 03/18/23 08:00 Resp 18 03/18/23 08:00 BP 110/63 03/18/23 08:00 Pulse Ox 97 03/18/23 06:00 O2 Del Method Room Air 03/18/23 06:00 Discharge Plan Discharge Patient Disposition: Home Condition: Critical Prescriptions: New losartan 50 mg Tablet 50 mg PO DAILY Qty: 90 3RF atorvastatin 40 mg Tablet 80 mg PO BEDTIME Qty: 90 3RF clopidogrel 75 mg Tablet 75 mg PO DAILY Qty: 90 3RF aspirin 81 mg Tablet,Delayed Release (Dr/Ec) 81 mg PO DAILY Qty: 90 3RF nitroglycerin 0.4 mg Tablet, Sublingual 0.4 mg sublingual Q5M PRN (Reason: Chest Pain) Qty: 30 1RF metoprolol succinate 25 mg Tablet Extended Release 24 Hr 12.5 mg PO DAILY Qty: 90 3RF Continued acetaminophen 500 mg Tablet 500 mg PO Q6H PRN (Reason: Pain) No Action promethazine 25 mg tablet 25 mg PO Q6H PRN (Reason: nausea and vomiting) Qty: 20 0RF pantoprazole 40 mg tablet,delayed release (DR/EC) See Rx Instructions .ROUTE .COMPLEX Rx Instructions: 1 p.o. twice daily x14 days then 1 daily Discharge Orders: Discharge Order (Routine); Ordered 03/18/23 Ordered By: Gigi Tomlinson Referrals: Lyndon Leon [Primary Care Provider] - Maria Luisa Soni FNP [Nurse Practitioner] - 03/28/23 10:00 am Discharge Diet: Cardiac Discharge Activity: Increase activity as tolerated Patient Instructions: Metoprolol (By mouth), Aspirin (By mouth), Nitroglycerin, Rapid Release (By mouth) (NitroMist, Nitrolingual,..., Losartan (By mouth), Atorvastatin (By mouth), Clopidogrel (By mouth), Heart Attack (DC), Coronary Angioplasty (DC), Heart Healthy Diet (ED), Opioid Safety Discharge Attestations Time Spent in Discharge Care*: greater than 30 min Quality Metrics Clinical Quality Measures [ Acute Myocardial Infaction { Clinical Trial Participant: No; Contraindication to aspirin: None; Aspirin prescribed; Contraindication to statin: None; Statin prescribed; Contraindication to PCI: None; PCI performed;}] Coding Level of Care Code Acute Code for [facility] Diagnoses ST elevation (STEMI) myocardial infarction I21.3
--- NOTE | 2023-03-18 08:59 | PC.NURSE ---
Patient received discharge orders, all IVs removed. Patient given all discharge instructions who verbalized understanding. Activity restrictions given to patient who verbalized understanding as well. Patient will discharge to main exit via w/c with staff.
== END 2023-03-18 09:30 | disposition home or self-care (01) | DRG 247 ==
LOC: ER 05:51 → CCL 06:00 → ICU 08:26
PROVIDERS: Admitting Provider Internal Medicine; Emergency Provider Emergency Medicine; PCP Otolaryngology; Visit Provider Internal Medicine
PROC: 027136Z Dilation of Coronary Artery, Two Arteries with Three Drug-eluting Intraluminal Devices, Percutaneous Approach (ICD-10-PCS; principal; 2023-03-17 05:30)
PROC: 027136Z Dilation of Coronary Artery, Two Arteries with Three Drug-eluting Intraluminal Devices, Percutaneous Approach (ICD-10-PCS; 2023-03-17 05:30)
DX: I21.21 ST elevation (STEMI) myocardial infarction involving left circumflex coronary artery (principal); I25.10 Atherosclerotic heart disease of native coronary artery without angina pectoris
CPT/HCPCS: 36415; 71045; 80048; 82550; 83880; 84484; 85025; 85347; 85610; 85730; 92960; 93005; 93306; 93454; 96361; 96365; 96367; 96374; 96375; 96376; 99152; 99153; 99285; C1725; C1769; C1874; C1887; C1894; C9600; C9601; J0282; J0360; J1644; J2250; J2270; J2405; J2765; J3010; J3490; J7030; Q9967

== ENCOUNTER 2023-03-21 10:26 | Emergency (ER) | payer MEDICARE, SELFPAY ==
[2023-03-21 11:07] VITALS: BP 141/75; PULSE 68; RESP 17; TEMP 36.7; O2SAT 97; BMI 25.2
[2023-03-21 11:22] LABS: Basophils % 0.4 %; Eosinophils # 0.1 10^3/uL (0.0-0.8); Eosinophils % 0.9 %; Hematocrit 47.6 % (37-53); Lymphocytes # 1.7 10^3/uL (0.8-4.8); Lymphocytes % 18.4 %; Mean Corpuscular Volume 85.3 fl (82-101); Mean Platelet Volume 9.3 fL (7.4-10.4); Monocytes # 0.4 10^3/uL (0.2-0.9); Monocytes % 4.5 %; Neutrophils # 6.99 10^3/uL (1.8-7.7); Neutrophils % 75.4 %; Nucleated Red Blood Cells % 0 %; Platelet Count 273 10^3/cmm (157-399); Red Blood Count 5.58 10^6/uL (3.85-5.65); Red Cell Distribution Width 13.6 % (12.1-15.1); White Blood Count 9.28 10^3/uL (3.29-11.43)
--- NOTE | 2023-03-21 11:24 | W.ED.GIBLEED ---
HPI - GI Bleed General: Chief complaint: GI Bleed Stated complaint: thowing up blood Time Seen by Provider: 03/21/23 11:24 Source: patient Mode of arrival: ambulatory History of Present Illness: 67-year-old female presents to the emergency room with complaint of an episode of hematemesis this morning. He woke this morning was sick to his stomach had 6 episodes of vomiting the last when he coughed up moderate amount of blood. He has not had any since then he has no hematochezia or melena. No coffee-ground emesis. He did recently have a angiogram still has bruising in the right groin. He has been started on clopidogrel and aspirin. He is not on any other anticoagulants. He denies regular use of alcohol. He has no history of cirrhosis or steatosis of the liver. Denies any history of previous GI bleed. MD complaint: gross hematemesis Relieving factors: none Exacerbating factors: none Associated symptoms: Denies abdominal pain, chills, easy bruising, epistaxis, fever(s), headache(s), malaise, nausea, other bleeding, poor appetite, rash, syncope, vomiting or weakness Review of Systems Const: Denies: fever(s), chills or malaise ENMT: Denies: epistaxis Card: Denies: syncope Resp: Denies: dyspnea, productive cough or non-productive cough GI: Denies: abdominal pain, nausea or vomiting : Denies: flank pain, dysuria, urinary frequency or urinary urgency Skin/Breast: Denies: rash Neuro: Denies: headache(s) Melvin/Lymph: Denies: easy bruising PFS ED PFSH: Medical History ST elevation (STEMI) myocardial infarction Surgical History Hx laparoscopic cholecystectomy 11/29/22 Dr. Watt Physical Exam Const: COMMON NORMALS: no acute distress GENERAL APPEARANCE: cooperative and comfortable ORIENTATION/CONSCIOUSNESS: Yes awake, Yes oriented to person, Yes oriented to place and Yes oriented to time HENMT: COMMON NORMALS: normocephalic, atraumatic and hearing grossly normal bilaterally HEAD & SCALP: normocephalic and atraumatic Resp: COMMON NORMALS: normal respiratory effort, No retractions, No use of accessory muscles and clear to auscultation bilaterally AUSCULTATION: clear to auscultation bilaterally Cardio: COMMON NORMALS: regular rate, regular rhythm and No murmurs present (Cardio) RATE: regular rate RHYTHM: regular rhythm GI: COMMON NORMALS: Soft to palpation and No hepatosplenomegaly present AUSCULTATION: Yes normoactive bowel sounds PALPATION: Yes Soft to palpation, No Tenderness to palpation present (GI), No Guarding due to palpation present (GI) and Yes No hepatosplenomegaly present Extremity: COMMON NORMALS: normal to inspection, capillary refill normal, no clubbing, cyanosis or edema, no calf tenderness and no pedal edema Neuro: SENSORIUM/ORIENTATION: Yes oriented to person, Yes oriented to place and Yes oriented to time Skin: COMMON NORMALS: no rashes or lesions noted GENERAL SKIN EXAM: no rashes or lesions noted Course Vital Signs: Vital signs: Vital Signs Temperature 98.1 F 03/21/23 11:07 Pulse Rate 60 03/21/23 12:16 Respiratory Rate 18 03/21/23 12:16 Blood Pressure 128/72 03/21/23 12:16 Pulse Oximetry 100 03/21/23 12:16 Oxygen Delivery Me thod Room Air 03/21/23 12:16 MDM - GI Bleed Medical Decision Making No active bleed at this time laboratory tests reviewed hemoglobin stable BUN normal has not had any episodes of vomiting here given his history description I think he had a little Mare-Chavez tear concerning for disease he is on Plavix now. We will have him recheck his hemoglobin tomorrow and a BMP in the office return if has further episodes liquid diet for now. Medical Records I reviewed the patient's medical records. Lab Data I reviewed the patient's lab results. 03/21/23 11:03 03/21/23 11:03 Laboratory Results WBC 9.28 10^3/uL (3.29-11.43) 03/21/23 11:03 RBC 5.58 10^6/uL (3.85-5.65) 03/21/23 11:03 Hgb 16.20 g/dL (11.27-16.99) 03/21/23 11:03 Hct 47.6 % (37-53) 03/21/23 11:03 MCV 85.3 fl (82-101) 03/21/23 11:03 MCH 29.0 pg (27-33) 03/21/23 11:03 MCHC 34.0 g/dL (30-55) 03/21/23 11:03 RDW 13.6 % (12.1-15.1) 03/21/23 11:03 Plt Count 273 10^3/cmm (157-399) 03/21/23 11:03 MPV 9.3 fL (7.4-10.4) 03/21/23 11:03 Neut % (Auto) 75.4 % 03/21/23 11:03 Lymph % (Auto) 18.4 % 03/21/23 11:03 [place] % (Auto) 4.5 % 03/21/23 11:03 Eos % (Auto) 0.9 % 03/21/23 11:03 Baso % (Auto) 0.4 % 03/21/23 11:03 Neut # (Auto) 6.99 10^3/uL (1.8-7.7) 03/21/23 11:03 Lymph # (Auto) 1.7 10^3/uL (0.8-4.8) 03/21/23 11:03 [place] # (Auto) 0.4 10^3/uL (0.2-0.9) 03/21/23 11:03 Eos # (Auto) 0.1 10^3/uL (0.0-0.8) 03/21/23 11:03 Baso # (Auto) 0.0 10^3/uL (0.0-0.1) 03/21/23 11:03 Nucleated RBC % (auto) 0 % 03/21/23 11:03 Nucleated RBCs # 0.0 /100WBC 03/21/23 11:03 PT 13.50 SECONDS (12.1-14.9) 03/21/23 11:03 INR 1.00 (0.8-1.2) 03/21/23 11:03 Sodium 141 mmol/L (136-145) 03/21/23 11:03 Potassium 3.8 mmol/L (3.5-5.1) 03/21/23 11:03 Chloride 109 mmol/L (98-107) H 03/21/23 11:03 Carbon Dioxide 22 mmol/L (22-29) 03/21/23 11:03 Anion Gap 13.8 (5-19) 03/21/23 11:03 BUN 19 mg/dL (8-23) 03/21/23 11:03 Creatinine 0.9 mg/dL (0.7-1.2) 03/21/23 11:03 GFR Calculation 83.7 mL/min (90-130) L 03/21/23 11:03 Glucose 118 mg/dL (65-115) H 03/21/23 11:03 Calculated Osmolality 295 mOsm/kg (285-295) 03/21/23 11:03 Calcium 8.8 mg/dL (8.5-10.5) 03/21/23 11:03 Total Bilirubin 1.5 mg/dL (0.15-1.2) H 03/21/23 11:03 AST 31 U/L (0-40) 03/21/23 11:03 ALT 29 U/L (0-41) 03/21/23 11:03 Alkaline Phosphatase 97 U/L (40-130) 03/21/23 11:03 Total Protein 7.1 g/dL (6.6-8.7) 03/21/23 11:03 Albumin 4.1 g/dL (3.5-5.2) 03/21/23 11:03 Globulin 3.0 g/dL (1.3-4.6) 03/21/23 11:03 No radiology studies performed this visit Discharge Plan Discharge Patient Disposition: Home Clinical Impression: Mare-Chavez syndrome Condition: Stable Prescriptions: New promethazine 25 mg tablet 25 mg PO Q6H PRN (Reason: nausea and vomiting) Qty: 20 0RF No Action acetaminophen 500 mg Tablet 500 mg PO Q6H PRN (Reason: Pain) losartan 50 mg Tablet 50 mg PO DAILY Qty: 90 3RF atorvastatin 40 mg Tablet 80 mg PO BEDTIME Qty: 90 3RF clopidogrel 75 mg Tablet 75 mg PO DAILY Qty: 90 3RF aspirin 81 mg Tablet,Delayed Release (Dr/Ec) 81 mg PO DAILY Qty: 90 3RF nitroglycerin 0.4 mg Tablet, Sublingual 0.4 mg sublingual Q5M PRN (Reason: Chest Pain) Qty: 30 1RF metoprolol succinate 25 mg Tablet Extended Release 24 Hr 12.5 mg PO DAILY Qty: 90 3RF pantoprazole 40 mg tablet,delayed release (DR/EC) See Rx Instructions .ROUTE .COMPLEX Rx Instructions: 1 p.o. twice daily x14 days then 1 daily Discharge Orders: Discharge ED (Routine); Ordered 03/21/23 Ordered By: Matias Murillo Referrals: Jarvis Leon, [Primary Care Provider] - Discharge Diet: Full LIquid Discharge Activity: Increase activity as tolerated Patient Instructions: Mare-Chavez Syndrome (ED), Opioid Safety, Pain Management Activity Restrictions/Additional Instructions: Return to the emergency room you have any further vomiting of blood. Follow-up with your primary care doctor next week. Coding Level of Care Code ED Vacuum Conditioner Operator for Masoud Hernandez
[2023-03-21 11:39] LABS: Alanine Aminotransferase 29 U/L (0-41); Albumin Level 4.1 g/dL (3.5-5.2); Alkaline Phosphatase 97 U/L (40-130); Anion Gap 13.8 (5-19); Aspartate Amino Transferase 31 U/L (0-40); Blood Urea Nitrogen 19 mg/dL (8-23); Calcium 8.8 mg/dL (8.5-10.5); Carbon Dioxide 22 mmol/L (22-29); Chloride 109 mmol/L (98-107); Glomerular Filtration Rate 83.7 mL/min (90-130); Glucose 118 mg/dL (65-115); Osmolality Calculated 295 mOsm/kg (285-295); Potassium 3.8 mmol/L (3.5-5.1); Sodium 141 mmol/L (136-145); Total Bilirubin 1.5 mg/dL (0.15-1.2); Total Protein 7.1 g/dL (6.6-8.7)
[2023-03-21 11:42] VITALS: BP 159/78; PULSE 61; RESP 18; O2SAT 98
[2023-03-21 12:16] VITALS: BP 128/72; PULSE 60; RESP 18; O2SAT 100
== END 2023-03-21 12:24 | disposition home or self-care (01) ==
PROVIDERS: Emergency Medicine; Emergency Provider Family Medicine; PCP Family Medicine
DX: K22.6 Gastro-esophageal laceration-hemorrhage syndrome (principal); Z79.02 Long term (current) use of antithrombotics/antiplatelets; Z79.82 Long term (current) use of aspirin; I25.2 Old myocardial infarction
CPT/HCPCS: 36415; 80053; 85025; 85610; 99283

== ENCOUNTER 2023-03-24 08:31 | Emergency (ER) | payer MEDICARE, SELFPAY ==
[2023-03-24 08:40] VITALS: BP 173/84; PULSE 68; TEMP 36.9; O2SAT 97; BMI 24.8
--- NOTE | 2023-03-24 08:46 | USR_ITS ---
PROCEDURE INFORMATION: Exam: US Duplex Right Lower Extremity Arteries Or Arterial Bypass Grafts Exam date and time: 03/24/2023 9:18 AM Age: 67 years old Clinical indication: Pain; Leg, upper; Right; Additional info: R groin - recent cath - palpabel nodule TECHNIQUE: Imaging protocol: Right Real-time duplex scan of the arteries or arterial bypass grafts of the right lower extremity with 2-D sorto scale, color Doppler flow and spectral waveform analysis. Images documented and saved. COMPARISON: No relevant prior studies available. FINDINGS: Patent right common femoral artery. No evidence of pseudoaneurysm. Small hematoma seen at the site of catheterization. [place] [id number] IMPRESSION: Small hematoma seen at the site of catheterization. No pseudoaneurysm is seen.
--- NOTE | 2023-03-24 08:46 | W.ED.GENADLT ---
HPI - General Adult General: Chief complaint: Skin/Abscess/Foreign Body Stated complaint: spot on right upper leg Time Seen by Provider: 03/24/23 08:42 Source: patient Mode of arrival: ambulatory History of Present Illness: 67-year-old male recently had a angiography performed. He has a palpable nodule in the right groin at the site of the sheath that he noticed overnight is not painful. Denies any leg or groin pain. He is on clopidogrel and aspirin. He was seen last week for by history of what sounded like a Mare-Chavez tear he has not had any further episodes of hematemesis since. Onset (ago): minute(s) Location: lower extremity (Right groin) Radiation: non-radiation Relieving factors: none Exacerbating factors: none Associated symptoms: Deny chest pain, confusion, cough, diaphoresis, decreased appetite, dyspnea, fevers/chills, headache(s), malaise, nausea, rash, palpitations, seizures, short of breath, syncope, vomiting or weakness Review of Systems Const: Denies: fever(s), chills, malaise or diaphoresis ENMT: Denies: throat pain, ear or mastoid pain, nasal discharge or nasal congestion Card: Denies: chest pain, palpitations or syncope Resp: Denies: dyspnea GI: Denies: nausea or vomiting : Denies: flank pain, dysuria, urinary frequency or urinary urgency Skin/Breast: Denies: rash Neuro: Denies: headache(s) or confusion PFSH ED PFSH: Medical History ST elevation (STEMI) myocardial infarction Surgical History Hx laparoscopic cholecystectomy 11/29/22 Dr. Watt Physical Exam Const: GENERAL APPEARANCE: cooperative and comfortable ORIENTATION/CONSCIOUSNESS: Yes awake, Yes oriented to person, Yes oriented to place and Yes oriented to time HENMT: COMMON NORMALS: normocephalic, atraumatic and hearing grossly normal bilaterally HEAD & SCALP: normocephalic and atraumatic Resp: COMMON NORMALS: normal respiratory effort, No retractions, No use of accessory muscles and clear to auscultation bilaterally AUSCULTATION: clear to auscultation bilaterally Cardio: COMMON NORMALS: regular rate, regular rhythm and No murmurs present (Cardio) RATE: regular rate RHYTHM: regular rhythm GI: COMMON NORMALS: Soft to palpation and No hepatosplenomegaly present AUSCULTATION: Yes normoactive bowel sounds PALPATION: Yes Soft to palpation, No Tenderness to palpation present (GI), No Guarding due to palpation present (GI) and Yes No hepatosplenomegaly present Extremity: COMMON NORMALS: normal to inspection, capillary refill normal, no clubbing, cyanosis or edema, no calf tenderness and no pedal edema OTHER: Palpable nodule right groin does not appear to be pulsatile is immediately overlying the femoral artery Neuro: SENSORIUM/ORIENTATION: Yes oriented to person, Yes oriented to place and Yes oriented to time Course Vital Signs: Vital signs: Vital Signs Temperature 98.4 F 03/24/23 08:40 Pulse Rate 68 03/24/23 08:40 Blood Pressure 173/84 03/24/23 08:40 Pulse Oximetry 97 03/24/23 08:40 Oxygen Delivery Me thod Room Air 03/24/23 08:40 MDM - General Adult Medical Decision Making Ultrasound shows resolving hematoma no pseudoaneurysm follow-up with cardiology as previously scheduled Medical Records I reviewed the patient's medical records. Lab Data I reviewed the patient's lab results. All radiology interpretation(s) finalized by discharge Discharge Plan Discharge Patient Disposition: Home Clinical Impression: Hematoma following procedure Condition: Stable Prescriptions: No Action promethazine 25 mg tablet 25 mg PO Q6H PRN (Reason: nausea and vomiting) Qty: 20 0RF pantoprazole 40 mg tablet,delayed release (DR/EC) 40 mg PO BID 14 Days Qty: 60 0RF Rx Instructions: 1 p.o. twice daily x14 days then 1 daily acetaminophen 500 mg Tablet 500 mg PO Q6H PRN (Reason: Pain) losartan 50 mg Tablet 50 mg PO DAILY Qty: 90 3RF atorvastatin 40 mg Tablet 80 mg PO BEDTIME Qty: 90 3RF clopidogrel 75 mg Tablet 75 mg PO DAILY Qty: 90 3RF aspirin 81 mg Tablet,Delayed Release (Dr/Ec) 81 mg PO DAILY Qty: 90 3RF nitroglycerin 0.4 mg Tablet, Sublingual 0.4 mg sublingual Q5M PRN (Reason: Chest Pain) Qty: 30 1RF metoprolol succinate 25 mg Tablet Extended Release 24 Hr 12.5 mg PO DAILY Qty: 90 3RF Discharge Orders: Discharge ED (Routine); Ordered 03/24/23 Ordered By: Matias Murillo Referrals: Jarvis Leon DO [Primary Care Provider] - Patient Instructions: Opioid Safety, Pain Management Coding Level of Care Code ED [employer] for Masoud Hernandez
--- NOTE | 2023-03-24 09:28 | PC.PHAR ---
pt states he takes the medications entered-pt states he is unsure what he takes in the am and hs-
== END 2023-03-24 09:33 | disposition home or self-care (01) ==
PROVIDERS: Emergency Provider Family Medicine; PCP Family Medicine
DX: L76.32 Postprocedural hematoma of skin and subcutaneous tissue following other procedure (principal); I25.2 Old myocardial infarction; Z79.02 Long term (current) use of antithrombotics/antiplatelets; Z79.82 Long term (current) use of aspirin; M79.604 Pain in right leg
CPT/HCPCS: 93926; 99284

== ENCOUNTER → 2023-03-28 11:09 | Outpatient (BNVA) | payer MEDICARE, SELFPAY | PROVIDERS: PCP Family Medicine; Visit Provider Nurse Practitioner Family | DX: I25.10 Atherosclerotic heart disease of native coronary artery without angina pectoris (principal); I25.2 Old myocardial infarction | CPT/HCPCS: 99214 ==

== ENCOUNTER → 2023-07-01 13:42 | Outpatient (BNVA) | payer MEDICARE, SELFPAY | PROVIDERS: PCP Family Medicine; Visit Provider Internal Medicine | DX: I25.10 Atherosclerotic heart disease of native coronary artery without angina pectoris (principal) | CPT/HCPCS: 99214 ==

== ENCOUNTER → 2023-12-31 15:24 | Outpatient (BNVA) | payer MEDICARE, SELFPAY | PROVIDERS: PCP Family Medicine; Visit Provider Internal Medicine | DX: I25.10 Atherosclerotic heart disease of native coronary artery without angina pectoris (principal); I25.2 Old myocardial infarction | CPT/HCPCS: 99214 ==

== ENCOUNTER → 2024-07-26 08:55 | Outpatient (BNVA) | payer MEDICARE, SELFPAY | PROVIDERS: PCP Family Medicine; Visit Provider Nurse Practitioner Family | DX: I25.10 Atherosclerotic heart disease of native coronary artery without angina pectoris (principal); I10 Essential (primary) hypertension; I25.2 Old myocardial infarction | CPT/HCPCS: 99213 ==

== ENCOUNTER → 2025-01-17 13:04 | Outpatient (BNVA) | payer MEDICARE, SELFPAY | PROVIDERS: PCP Family Medicine; Visit Provider Internal Medicine | DX: I25.10 Atherosclerotic heart disease of native coronary artery without angina pectoris (principal) | CPT/HCPCS: 99214 ==

== ENCOUNTER 2025-02-08 07:11 | Outpatient (CLI) | payer MEDICARE, SELFPAY ==
[2025-02-08 07:40] LABS: Cholesterol 89 mg/dL (0-200); HDL Cholesterol 31 mg/dL (60-100); Triglycerides 143 mg/dL (0-150)
== END 2025-02-08 07:12 | disposition home or self-care (01) ==
PROVIDERS: PCP Family Medicine; Visit Provider Internal Medicine
DX: E78.5 Hyperlipidemia, unspecified (principal)
CPT/HCPCS: 36415; 80061